=== PATIENT | male | born 1965 | race Two or more races ===

== ENCOUNTER 2023-12-01 11:33 | Emergency (ER) | payer MEDICAID, OTHER ==
[~2023-12-01] VITALS: Ht 165.1 cm; Wt 49.6 kg
[2023-12-01] MEDS: LIDOCAINE 2% JELLY 11ml (GLYDO) UR ONE (12:42)
[2023-12-01 13:42] LABS: Urine Bacteria None Seen /hpf (None Seen)
[2023-12-01 13:49] LABS: Urine Blood 1+ /uL (Negative); Urine Clarity Clear (Clear); Urine Color Light-Yellow (Yellow); Urine Mucus FEW (None Seen); Urine Protein, UAD TRACE (Negative); Urine Specific Gravity 1.015 (1.001-1.035); Urine Urobilinogen Normal (Negative); Urine WBC 1 /hpf (0 - 3)
[2023-12-01 16:23] VITALS: BP 182/104; PULSE 94; RESP 18; O2SAT 98
== END 2023-12-01 16:26 | disposition home or self-care (01) ==
LOC: ER 11:33
DX: R33.9 Retention of urine, unspecified (principal); E78.5 Hyperlipidemia, unspecified; I10 Essential (primary) hypertension; F17.210 Nicotine dependence, cigarettes, uncomplicated; Z86.73 Personal history of transient ischemic attack (TIA), and cerebral infarction without residual deficits
CPT/HCPCS: 51701; 51702; 81001

== ENCOUNTER 2023-12-12 15:53 | Emergency (ER) | payer MEDICAID ==
[~2023-12-12] VITALS: Ht 165.1 cm; Wt 48.5 kg
[2023-12-12 16:23] VITALS: BP 171/97; PULSE 97; RESP 18; TEMP 97.3; O2SAT 98
== END 2023-12-12 16:57 | disposition home or self-care (01) ==
LOC: ER 15:56
DX: Z46.6 Encounter for fitting and adjustment of urinary device (principal); I10 Essential (primary) hypertension; E78.5 Hyperlipidemia, unspecified; F17.210 Nicotine dependence, cigarettes, uncomplicated; Z86.73 Personal history of transient ischemic attack (TIA), and cerebral infarction without residual deficits

== ENCOUNTER 2024-05-04 21:06 | Emergency (ER) | payer MEDICAID ==
[~2024-05-04] VITALS: Ht 157.5 cm; Wt 49.7 kg
--- NOTE | 2024-05-04 21:31 | ED.PDOC ---
General HPI Comments 59-year-old male with PMHx HTN, CVA presents with a chief complaint of urinary retention x onset 1800 today. Patient relays that he is not able to empty his bladder and feels extremely full. Patient mentions that this has happened to him before in the past and was given a Harris catheter and discharged home. Patient reports that he did follow-up with his doctor, whom did not want to remove the Harris catheter or refer him to a urologist. Patient was also hypertensive in triage at 194/128 and then rechecked at 221/117. Patient mentions that he has been complaint with his medication. Chief Complaint: Urinary Time Seen by MD: 21:20 Primary Care Provider: DEANDRE Reviewed notes: Medications, Allergies Allergies: Coded Allergies: NO KNOWN ALLERGIES (Unverified , 12/01/23) Information Source: Patient, Friend Mode of Arrival: Ambulatory Severity: Moderate Inability to void: Complete Timing: Hours Duration: Since onset Has not urinated for: Hours Prehospital treatment: None Onset: Spontaneous Symptoms: Inability to void Location: Suprapubic Penile discharge: None Modifying factors: None associated signs and symptoms: Inability to Void Past Medical History PAST MEDICAL HISTORY: CVA, High Lipids, HTN Past Medical History (Other): prostate enlargement Surgical History: Denies all surgeries Family History Family History: No family hx of Cancer, No family hx of DM, No family hx of Heart jae Social History Smoker: Cigarettes Alcohol: Denies ETOH Use Drugs: Denies Drug Use Lives In: Home Constitutional: denies: chills, diaphoresis, fatigue, fever, malaise, sweats, weakness, others EENTM: denies: blurred vision, double vision, ear bleeding, ear discharge, ear drainage, ear pain, ear ringing, eye pain, eye redness, hearing loss, mouth pain, mouth swelling, nasal discharge, nose bleeding, nose congestion, nose pain, photophobia, tearing, throat pain, throat swelling, voice changes, others Respiratory: denies: cough, hemoptysis, orthopnea, SOB at rest, shortness of breath, SOB with excertion, stridor, wheezing, others Cardiovascular: denies: chest pain, dizzy spells, diaphoresis, Dyspnea on exertion, edema, irregular heart beat, left arm pain, lightheadedness, palpit ations, PND, syncope, others Gastrointestinal: denies: abdomen distended, abdominal pain, blood streaked b owels, constipated, diarrhea, dysphagia, difficulty swallowing, hematemesis, melena, nausea, poor appetite, poor fluid intake, rectal bleeding, rectal pain, vomiting, others Genitourinary: reports: others (Inability to Void); denies: burning, dysuria, flank pain, frequency, hematuria, incontinence, penile discharge, penile sore, pain, testicle pain, testicle swelling, urgency Neurological: denies: dizziness, fainting, headache, left sided numbness, left sided weakness, numbness, paresthesia, pre-existing deficit, right sided numbness, right sided weakness, seizure, speech problems, tingling, tremors, weakness, others Musculoskeletal: denies: back pain, gout, joint pain, joint swelling, muscle pain, muscle stiffness, neck pain, others Integumetry: denies: bruises, change in color, change in hair/nails, dryness, laceration, lesions, lumps, rash, wounds, others Allergic/Immunocompromised: denies: Difficulty Healing, Frequent Infections, Hives, Itching, others Hematologic/Lymphatic: denies: anemia, blood clots, easy bleeding, easy bruising, swollen glands, others Endocrine: denies: excessive hunger, excessive sweating, excessive thirst, excessive urination, flushing, intolerance to cold, intolerance to heat, unexplained weight gain, unexplained weight loss, others Psychiatric: denies: anxiety, bipolar disorder, depression, hopeless, panic disorder, schizophrenia, sleepless, suicidal, others All Other Systems: Reviewed and Negative Physical Exam General Appearance: No Apparent Distress HEENT: Normal ENT Inspection Neck: Full Range of Motion, Normal Inspection Respiratory: Lungs Clear, No Accessory Muscle Use, No Respiratory Distress, Normal Breath Sounds Cardiovascular: No Edema, No JVD, Regular Rate/Rhythm Breast Exam: Deferred Gastrointestinal: Soft, Suprapubic (distention and tenderness), Tenderness Genitalia: Deferred Pelvic: Deferred Rectal: Deferred Extremities: Normal inspection, Normal range of motion, Non-tender, No pedal edema Neurologic: Alert, No Motor Deficits, Normal Affect, Normal Mood, No Sensory Deficits Cerebellar Function: NOT DONE Reflexes: NOT DONE Skin: Dry, Normal Color, Warm Lymphatic: NOT DONE Was a procedure done? Was a procedure done?: No Differential Diagnosis Kidney stone (Female): Renal failure, Urinary obstruction Penile/Scrotal: UTI, Urinary Retention Urinary Problem (Male): Bladder Obstruction X-Ray, Labs, Meds, VS Vital Signs Date Time Temp Pulse Resp B/P (MAP) Pulse Ox O2 Delivery O2 Flow Rate FiO2 05/04/24 21:25 98.2 103 18 202/84 (123) 98 Lab Test 05/04/24 21:25 Range/Units Urine Color Light-yellow Yellow Urine Clarity Clear Clear Urine pH 5.5 5.0-9.0 Urine Specific [place] 1.010 1.001-1.035 Urine Protein Negative Negative Urine Ketones Trace Negative Urine Blood 3+ H Negative /uL Urine Nitrite Negative Negative Urine Bilirubin Negative Negative Urine Urobilinogen Normal Negative mg/dL Urine Leukocyte Esterase Negative Negative /uL Urine RBC 53 0 - 3 /hpf Urine WBC 3 0 - 3 /hpf Urine Squamous Epithelial Cells Few <5 /hpf Urine Bacteria None seen None Seen /hpf Urine Mucus Few None Seen Urine Glucose Normal Normal mg/dL X-Ray, Labs, Meds, VS Comment 59-year-old male with a history of hypertension, dyslipidemia and prostate enl argement presenting with inability to urinate since around 1800 Vitals remarkable for BP 202/84, heart rate 101 Exam remarkable for suprapubic distention and tenderness UA showed blood and RBCs, but was not consistent with infection Harris catheter was inserted with good urine output and relief of abdominal distention and discomfort. On re-evaluation, patient stated he was feeling better, abdominal exam was benign. Hospitalization was considered, however patient had rapid improvement of his symptoms with Harris catheter insertion, and I no longer feel hospitalization is necessary. Patient appears stable for outpatient follow-up with his primary physician for referral to an urologist. Alternatively, he will be referred directly to Dr. Alvarado. Time of 1ST Reevaluation: 21:50 Reevaluation 1ST: Unchanged Patient Education/Counseling: Diagnosis, Treatment, Prognosis Family Education/Counseling: No Family Present Departure 1 Departure Time of Disposition: 23:06 Impression: Primary Impression: Urinary retention Disposition: 01 HOME / SELF CARE / HOMELESS Condition: Stable Referrals: BEN ALVARADO MD Urology Additional Instructions: Follow-up with your primary doctor or an ER in 2 days for catheter removal. If seeing your primary doctor, request referral to an urologist. Alternatively, follow-up directly with Dr. Alvarado. Discharged With: Relative Critical Care Note Critical Care Time?: No Stability Stability form required: No Heart Score Heart Score: Heart Score Response (Comments) Value History N/A 0 EKG N/A 0 Age N/A 0 Risk Factors N/A 0 Troponin N/A 0 Total 0 I personally scribed for SHOLA SOFIA MD ([email or web address]) on 05/04/24 at 21:31. Electronically submitted by Jorge Storm [email or web address]). SHOLA SOFIA MD May 04, 2024 21:31
[2024-05-05 02:00] VITALS: PULSE 89; RESP 18; TEMP 98.2; O2SAT 96
[2024-05-05 02:50] LABS: Urine Bacteria None Seen /hpf (None Seen)
[2024-05-05 03:16] LABS: Urine Blood 3+ /uL (Negative); Urine Clarity Clear (Clear); Urine Color Light-Yellow (Yellow); Urine Mucus FEW (None Seen); Urine Protein, UAD Negative (Negative); Urine Urobilinogen Normal (Negative); Urine WBC 3 /hpf (0 - 3); Urine pH 5.5 (5.0-9.0)
[2024-05-05 03:53] VITALS: BP 135/86; PULSE 96; RESP 16; O2SAT 98
== END 2024-05-05 04:02 | disposition home or self-care (01) ==
LOC: ER 21:06
DX: T83.098A Other mechanical complication of other urinary catheter, initial encounter (principal); E78.5 Hyperlipidemia, unspecified; F17.210 Nicotine dependence, cigarettes, uncomplicated; Z86.73 Personal history of transient ischemic attack (TIA), and cerebral infarction without residual deficits
CPT/HCPCS: 51702; 81001

== ENCOUNTER 2024-05-08 10:29 | Emergency (ER) | payer MEDICAID ==
[~2024-05-08] VITALS: Ht 157.5 cm; Wt 48.8 kg
[2024-05-08 12:04] VITALS: BP 110/90; PULSE 91; RESP 18; TEMP 98; O2SAT 98
--- NOTE | 2024-05-08 12:08 | ED.PDOC ---
History of Present Illness HPI Comments A 59 YEAR OLD MALE PRESENTS TO THE ED WITH COMPLAINT OF REQUEST FOR YAP CATHETER REMOVAL. PATIENT STATES HE HAD A YAP CATHETER PLACED 4 DAYS AGO HERE IN THIS ED AND WOULD NOW LIKE IT TO BE REMOVED HE STATES HE FEELS LIKE HE CAN URINATE BY HIMSELF. PATIENT DENIES FEVER, CHILLS, SHORTNESS OF BREATH, CHEST PAIN, ABDOMINAL PAIN, NAUSEA, VOMITING, HEADACHE, OR OTHER COMPLAINTS. NO OTHER SYMPTOMS OR MODIFYING FACTORS AT THIS TIME. PATIENT IS ALERT, ORIENTED X 4, AND HAS STEADY GAIT. Chief Complaint: Tube Replacement Time Seen by MD: 10:42 Primary Care Provider: DEANDRE Reviewed Notes: Nurses Notes, Medications, Allergies Allergies: Coded Allergies: NO KNOWN ALLERGIES (Unverified , 12/01/23) Home Meds Active Scripts Tamsulosin Hcl (Flomax) 0.4 Mg Cap, 1 CAP PO DAILY, #30 CAP Prov:HAMZAH GOODWIN 05/08/24 Ciprofloxacin Hcl (Cipro) 500 Mg Tab, 1 TAB PO BID, #14 TAB Prov:HAMZAH GOODWIN 05/08/24 Information Source: Patient Mode of Arrival: Ambulatory Severity: None Timing: Days Duration: Since onset, Days Prehospital treatment: None Medication Refill: For: Other (YAP CATHETER REMOVAL) Past Medical History PAST MEDICAL HISTORY: CVA, High Lipids, HTN, UTI'S Past Medical History (Other): BPH Surgical History: Denies all surgeries Family History Family History: No family hx of Cancer, No family hx of DM, No family hx of Heart jae Social History Smoker: Cigarettes Alcohol: Denies ETOH Use Drugs: Denies Drug Use Lives In: Home Constitutional: denies: chills, diaphoresis, fatigue, fever, malaise, sweats, weakness, others EENTM: denies: blurred vision, double vision, ear bleeding, ear discharge, ear drainage, ear pain, ear ringing, eye pain, eye redness, hearing loss, mouth pain, mouth swelling, nasal discharge, nose bleeding, nose congestion, nose pain, photophobia, tearing, throat pain, throat swelling, voice changes, others Respiratory: denies: cough, hemoptysis, orthopnea, SOB at rest, shortness of breath, SOB with excertion, stridor, wheezing, others Cardiovascular: denies: chest pain, dizzy spells, diaphoresis, Dyspnea on exertion, edema, irregular heart beat, left arm pain, lightheadedness, palpitations, PND, syncope, others Gastrointestinal: denies: abdomen distended, abdominal pain, blood streaked bowels, constipated, diarrhea, dysphagia, difficulty swallowing, hematemesis, melena, nausea, poor appetite, poor fluid intake, rectal bleeding, rectal pain, vomiting, others Genitourinary: denies: burning, dysuria, flank pain, frequency, hematuria, incontinence, penile discharge, penile sore, pain, testicle pain, testicle swelling, urgency, others Neurological: denies: dizziness, fainting, headache, left sided numbness, left sided weakness, numbness, paresthesia, pre-existing deficit, right sided numbness, right sided weakness, seizure, speech problems, tingling, tremors, weakness, others Musculoskeletal: denies: back pain, gout, joint pain, joint swelling, muscle pain, muscle stiffness, neck pain, others Integumetry: denies: bruises, change in color, change in hair/nails, dryness, laceration, lesions, lumps, rash, wounds, others Allergic/Immunocompromised: denies: Difficulty Healing, Frequent Infections, Hives, Itching, others Hematologic/Lymphatic: denies: anemia, blood clots, easy bleeding, easy bruising, swollen glands, others Endocrine: denies: excessive hunger, excessive sweating, excessive thirst, excessive urination, flushing, intolerance to cold, intolerance to heat, unexplained weight gain, unexplained weight loss, others Psychiatric: denies: anxiety, bipolar disorder, depression, hopeless, panic disorder, schizophrenia, sleepless, suicidal, others All Other Systems: Reviewed and Negative Physical Exam General Appearance: No Apparent Distress, Normal HEENT: Normal ENT Inspection, PERRL/EOMI, Pharynx Normal, TMs Normal Neck: Full Range of Motion, Non-Tender, Normal, Normal Inspection Respiratory: Chest Non-Tender, Lungs Clear, No Accessory Muscle Use, No Respiratory Distress, Normal Breath Sounds Cardiovascular: No Edema, No JVD, No Murmur, No Gallop, Normal Peripheral Pulses, Regular Rate/Rhythm Breast Exam: Deferred Gastrointestinal: No Organomegaly, Non Tender, No Pulsatile Mass, Normal Bowel Sounds, Soft Genitalia: Deferred Pelvic: Deferred Rectal: Deferred Extremities: No calf tenderness, Normal capillary refill, Normal inspection, Normal range of motion, Non-tender, No pedal edema Musculoskeletal : Apperance: Normal Neurologic: Alert, neuropathologist II-XII nml as Tested, No Motor Deficits, Normal Affect, Normal Mood, No Sensory Deficits Cerebellar Function: Normal Reflexes: Normal Skin: Dry, Normal Color, Warm Peripheral Pulses: 2+ carotid (R), 2+ carotid (L) Lymphatic: No Adenopathy Was a procedure done? Was a procedure done?: No Differential Dx Considerations may include: REQUEST FOR AYP CATHETER REMOVAL, HISTORY UTI X-Ray, Labs, Meds, VS Vital Signs Date Time Temp Pulse Resp B/P (MAP) Pulse Ox O2 Delivery O2 Flow Rate FiO2 05/08/24 12:04 91 18 98 Room Air 05/08/24 12:04 98.0 91 18 110/90 (97) 98 98.0 05/08/24 10:41 98.0 91 18 170/90 (116) 98 X-Ray, Labs, Meds, VS Comment TREATMENT: YAP CATHETER WAS REMOVED. Time of 1ST Reevaluation: 13:00 Reevaluation 1ST: Improved Patient Education/Counseling: Diagnosis, Treatment, Need For Follow Up Family Education/Counseling: Diagnosis, Treatment, Need For Follow Up Medical Screening: No EMC Exist At This Time Departure 1 Departure Time of Disposition: 13:00 Impression: Primary Impression: Encounter for Yap catheter removal Disposition: 01 HOME / SELF CARE / HOMELESS Condition: Stable Additional Instructions: FOLLOW-UP WITH PCP IN 1 TO 2 DAYS. TAKE MEDICATIONS PRESCRIBED. RETURN TO ED FOR ANY NEW OR WORSENING SYMPTOMS. e-Prescriptions Tamsulosin Hcl (Flomax) 0.4 Mg Cap 1 CAP PO DAILY, #20 CAP Prov: HAMZAH GOODWIN 05/08/24 Ciprofloxacin Hcl (Cipro) 500 Mg Tab 1 TAB PO BID, #14 TAB Prov: HAMZAH GOODWIN 05/08/24 Discharged With: Self, Relative Critical Care Note Critical Care Time?: No Stability Stability form required: No I personally scribed for HAMZAH GOODWIN ([email or web address]) on 05/08/24 at 12:08. Electronically submitted by Jared Champagne ([email or web address]). HAMZAH GOODWIN May 08, 2024 12:08
[2024-05-08] MEDS ORDERED: CIPR-173 PO (12:39)
[2024-05-08] MEDS ORDERED: TAMS-35 PO (12:39)
== END 2024-05-08 13:11 | disposition home or self-care (01) ==
LOC: ER 10:29
DX: N40.0 Benign prostatic hyperplasia without lower urinary tract symptoms (principal); F17.210 Nicotine dependence, cigarettes, uncomplicated; I10 Essential (primary) hypertension; Z46.6 Encounter for fitting and adjustment of urinary device; Z86.73 Personal history of transient ischemic attack (TIA), and cerebral infarction without residual deficits; Z87.440 Personal history of urinary (tract) infections

== ENCOUNTER 2024-06-02 15:08 | Inpatient (IN) | payer MEDICAID ==
[~2024-06-02] VITALS: Ht 157.5 cm; Wt 49.1 kg
[~2024-06-02 15:08] MED LIST: CIPR-173 PO; TAMS-35 PO
--- NOTE | 2024-06-02 15:25 | ED.PDOC ---
General HPI Comments HPI: Poor Historian. 59 y/o M presents with bother for c/o urinary retention since 0700 am today. This is the 3rd time this problem happens. He has been here before happened with catheter inserted and later removed. Patient is not follow up with the Urology yet. Patient appears very uncomfortable. Denies any other acute symptoms. Harris catheter was placed in triage and a minimum of 400 cc came out Initial Vital Signs: Temp: 97.7F HR: 115 RR: 20 BP: 164/115 SpO2: 97% PMHx: CVA w/left-sided deficits, HTN, HLD PSHx: denies REVIEW OF SYSTEMS: CONSTITUTIONAL: Denies acute: fever, diaphoresis, chills, generalized weakness. HEAD: Denies acute: headache, photophobia Eyes: Denies acute: Double vision, vision loss, eye pain, eye discharge. EARS: Denies acute: tinnitus, hearing loss, ear discharge, ear pain, THROAT: Denies acute: sore throat, swelling, difficulty swallowing , pain with swallowing, change in voice. NECK: Denies acute: neck pain, neck swelling, stiff neck. HEART: Denies acute : chest pain, palpitations, LUNGS: Denies acute: SOB, wheezing, cough, hemoptysis ABDOMEN: Denies acute: Nausea, Vomiting, diarrhea, melena , hematemesis, hematochezia SKIN: Denies acute: rash, redness, lesions, itchiness. EXTREMITIES: Denies acute: calf pain, numbness, tingling, weakness, denies pain in extremity. Denies acute: Low back pain. Neuro: Denies acute: focal neurological deficit, motor or sensory focal neurological deficit, tremors, seizure like activity, confusion, dizziness, change in mental status, loss of bowel or bladder function, cauda equina like symptoms. : Denies acute: dysuria, hematuria, flank pain, increase in urinary frequency. PSYCH: Denies acute: hallucination, suicidal ideation, homicidal ideation. PHYSICAL EXAM: General: Moderate acute distress, awake and alert. Head: normocephalic, atraumatic. Neck: supple, trachea is midline, no swelling. Throat: Normal phonation. Eyes:, no erythema, no purulent discharge, no proptosis, no icterus. Heart: regular tachycardic, no significant murmur appreciated. Lungs: no apparent respiratory distress, Able to speak in full sentences. No wheezing, no rhonchi, no crackles. No stridors Clear to auscultation bilaterally. Abdomen: Generalized lower abdomen tender to palpation, non distended, soft, no guarding, no rebound, + bowel sounds. Neuro: Awake, Alert, oriented to name, self, situation, follows commands GCS=15. Speech is normal. Skin: no petechia, no purpura, no cyanosis, non-pale, not jaundice. Lower extremities: --no - Pitting edema no deformity, no focal swelling, no calf TTP. Makes eye contact. moves all four extremities. Face: no apparent facial droop. Chief Complaint: Urinary Time Seen by MD: 15:15 Primary Care Provider: DEANDRE Reviewed notes: Nurses Notes, Medications, Allergies Allergies: Coded Allergies: NO KNOWN ALLERGIES (Unverified , 12/01/23) Home Meds Active Scripts Tamsulosin Hcl (Flomax) 0.4 Mg Cap, 1 CAP PO DAILY, #20 CAP Prov:HAMZAH GOODWIN 05/08/24 Ciprofloxacin Hcl (Cipro) 500 Mg Tab, 1 TAB PO BID, #14 TAB Prov:HAMZAH GOODWIN 05/08/24 Information Source: Patient, Relative (Sibling) Was a procedure done? Was a procedure done?: No X-Ray, Labs, Meds, VS Vital Signs Date Time Temp Pulse Resp B/P (MAP) Pulse Ox O2 Delivery O2 Flow Rate FiO2 06/02/24 15:20 97.7 115 20 164/115 (131) 97 06/02/24 15:20 124 Lab Test 06/02/24 18:06 06/02/24 16:58 06/02/24 15:35 06/02/24 15:00 Range/Units Lactic Acid Level 2.7 *H 4.2 *H 0.4-2.0 mmol/L Troponin I High Sensitivity 654 *H 578 *H 374 *H </=54 ng/L White Blood Count 9.7 4.4-10.8 10^3/uL Red Blood Count 5.68 4.5-5.90 10^6/uL Hemoglobin 17.6 H 13.5-17.5 g/dL Hematocrit 51.8 41.0-53.0 % Mean Corpuscular Volume 91.1 80.0-100.0 fL Mean Corpuscular Hemoglobin 31.0 28.0-32.0 pg Mean Corpuscular Hemoglobin Concent 34.0 32.0-36.0 g/dL Red Cell Distribution Width 13.7 11.8-14.3 % Platelet Count 247 140-450 10^3/uL Mean Platelet Volume 8.1 6.9-10.8 fL Neutrophils (%) (Auto) 87.2 H 37.0-80.0 % Lymphocytes (%) (Auto) 8.2 L 10.0-50.0 % Monocytes (%) (Auto) 3.9 0.0-12.0 % Eosinophils (%) (Auto) 0.4 0.0-7.0 % Basophils (%) (Auto) 0.3 0.0-2.0 % Neutrophils # (Auto) 8.4 1.6-8.6 10 ^3/uL Lymphocytes # (Auto) 0.8 0.4-5.4 10 ^3/uL Monocytes # (Auto) 0.4 0-1.3 10 ^3/uL Eosinophils # (Auto) 0 0-0.8 10 ^3/uL Basophils # (Auto) 0 0-0.2 10 ^3/uL Nucleated Red Blood Cells 0.1 % Sodium Level 141 136-145 mmol/L Potassium Level 3.7 3.5-5.1 mmol/L Chloride Level 106 98-107 mmol/L Carbon Dioxide Level 27 20-31 mmol/L Anion Gap 8 5-15 Blood Urea Nitrogen 10 9-23 mg/dL Creatinine 1.18 0.700-1.30 mg/dL Glomerular Filtration Rate Calc 72 >90 mL/min BUN/Creatinine Ratio 8.5 L 10.0-20.0 Serum Glucose 184 H 74-106 mg/dL Calcium Level 10.1 8.7-10.4 mg/dL Total Bilirubin 0.5 0.2-1.0 mg/dL Aspartate Amino Transferase (AST) 22 13-40 U/L Alanine Aminotransferase (ALT) 21 7-40 U/L Alkaline Phosphatase 130 H 46-116 U/L Total Protein 7.4 5.7-8.2 g/dL Albumin 4.6 3.2-4.8 g/dL Urine Color Light-yellow Yellow Urine Clarity Clear Clear Urine pH 6.5 5.0-9.0 Urine Specific [place] 1.010 1.001-1.035 Urine Protein Negative Negative Urine Ketones Negative Negative Urine Blood Negative Negative /uL Urine Nitrite Negative Negative Urine Bilirubin Negative Negative Urine Urobilinogen Normal Negative mg/dL Urine Leukocyte Esterase Negative Negative /uL Urine RBC 3 0 - 3 /hpf Urine WBC 1 0 - 3 /hpf Urine Squamous Epithelial Cells None seen <5 /hpf Urine Bacteria None seen None Seen /hpf Urine Glucose 1+ H Normal mg/dL Time of 1ST Reevaluation: 15:15 Reevaluation 1ST: Unchanged Patient Education/Counseling: Diagnosis, Treatment Family Education/Counseling: No Family Present Departure 1 Departure Time of Disposition: 15:32 Impression: Primary Impression: Acute urinary retention Additional Impressions: Elevated troponin Elevated lactic acid level Disposition: ADMITTED INPATIENT [facility]mit to: [facility] Condition: Guarded Discharged With: Self, Relative (Sibling) Critical Care Note Critical Care Time?: No I personally scribed for PETE FLANNERY DO ([email or web address]) on 06/02/24 at 15:25. Electronically submitted by Darien Pagan [email or web address]). I personally scribed for PETE FLANNERY DO ([email or web address]) on 06/02/24 at 15:43. Electronically submitted by Darien Pagan ([email or web address]). I personally scribed for PETE FLANNERY DO ([email or web address]) on 06/02/24 at 19:55. Electronically submitted by Jorge Storm [email or web address]). PETE FLANNERY DO Jun 02, 2024 15:25
[2024-06-02 15:56] LABS: Basophils # (auto) 0 10 ^3/uL (0-0.2); Basophils % (auto) 0.3 % (0.0-2.0); Eosinophils # (auto) 0 10 ^3/uL (0-0.8); Eosinophils % (auto) 0.4 % (0.0-7.0); Hematocrit 51.8 % (41.0-53.0); Hemoglobin 17.6 g/dL (13.5-17.5); Lymphocytes # (auto) 0.8 10 ^3/uL (0.4-5.4); Lymphocytes % (auto) 8.2 % (10.0-50.0); Mean Corpuscular Volume 91.1 fL (80.0-100.0); Monocytes # (auto) 0.4 10 ^3/uL (0-1.3); Monocytes % (auto) 3.9 % (0.0-12.0); Neutrophils # (auto) 8.4 10 ^3/uL (1.6-8.6); Neutrophils % (auto) 87.2 % (37.0-80.0); Nucleated Red Blood Cells % 0.1 %; Platelet Count (auto) 247 10^3/uL (140-450); Red Blood Cells 5.68 10^6/uL (4.5-5.90); Red Cell Distribution Width 13.7 % (11.8-14.3); White Blood Cell 9.7 10^3/uL (4.4-10.8)
[2024-06-02 16:00] LABS: Urine Bacteria None Seen /hpf (None Seen)
[2024-06-02 16:11] LABS: Alanine Aminotransferase 21 U/L (7-40); Albumin 4.6 g/dL (3.2-4.8); Anion Gap 8 (5-15); Aspartate Aminotransferase 22 U/L (13-40); BUN/Creatinine Ratio 8.5 (10.0-20.0); Bilirubin, Total 0.5 mg/dL (0.2-1.0); Blood Urea Nitrogen 10 mg/dL (9-23); Calcium 10.1 mg/dL (8.7-10.4); Carbon Dioxide 27 mmol/L (20-31); Chloride 106 mmol/L (98-107); Potassium 3.7 mmol/L (3.5-5.1); Sodium 141 mmol/L (136-145); Total Protein 7.4 g/dL (5.7-8.2)
[2024-06-02 16:15] LABS: Alkaline Phosphatase 130 U/L (46-116); Glucose 184 mg/dL (74-106)
[2024-06-02 16:19] LABS: Lactic Acid w/Reflex 4.2 mmol/L (0.4-2.0)
[2024-06-02 16:25] LABS: Urine Blood Negative /uL (Negative); Urine Clarity Clear (Clear); Urine Color Light-Yellow (Yellow); Urine Protein, UAD Negative (Negative); Urine Urobilinogen Normal (Negative); Urine WBC 1 /hpf (0 - 3); Urine pH 6.5 (5.0-9.0)
[2024-06-02] MEDS ORDERED: NITROGLYCERIN 0.4 MG SL TAB SL PRN (19:00)
[2024-06-02] MEDS ORDERED: ONDANSETRON HCL 4 MG/2 ML VIAL IV PRN (19:00)
[2024-06-02] MEDS ORDERED: MORPHINE SULFATE INJ 2 MG/ml SYRG IV PRN (19:00)
--- NOTE | 2024-06-02 19:39 | DVH ---
CHEST RADIOGRAPH Indication: tachy Technique: Single frontal view of the chest was obtained Comparison: None FINDINGS: Lines and Tubes: None Lungs: No focal consolidation. Pleura: No effusion. No pneumothorax. Cardiomediastinal contours: Unremarkable Bones: No acute osseous abnormality. IMPRESSION: 1. No radiographic evidence of acute cardiopulmonary disease. HS:Y
[2024-06-02] MEDS: ASPirin 325 MG TAB PO ONE (21:41)
[2024-06-02] MEDS: SODIUM CHLORIDE 0.9% 1,000 ML IV ONE (21:41)
[2024-06-02] MEDS: ATORVASTATIN 20 MG TAB PO SCH (21:41)
[2024-06-02 22:00] VITALS: PULSE 68; RESP 16; O2SAT 96
[2024-06-03] VITALS (10 sets, daily range): BP systolic 142–179; BP diastolic 73–107; PULSE 60–77; RESP 16–19; TEMP 97.6–98.3; O2SAT 97–99
[2024-06-03] MEDS: TEMAZEPAM 15 MG CAP PO PRN (01:26)
--- NOTE | 2024-06-03 04:01 | DVHHP2 ---
History of Present Illness Reason for Visit: Urinary retention History of Present Illness 59-year-old male presents for evaluation of urinary retention. Patient presents with a one day history of urinary retention. He states having a similar episode twice in the past. Patient denies nausea or vomiting. Denies fever or chills. No dysuria. Initial troponin levels were noted to be elevated as well. He denies chest pain or shortness for breath. Past Medical History Dyslipidemia, hypertension and CVA Past Surgical History Denies Family History Noncontributory Smoke: No ALCOHOL: none Drugs: None Lives: with Family Review of Systems Review of Systems Review of systems are currently negative otherwise addressed in HPI. Allergies: Coded Allergies: NO KNOWN ALLERGIES (Unverified , 12/01/23) Medications Current Medications Medications Dose Ordered Sig/Harman Route Start Time Stop Time Status Last Admin Dose Admin Temazepam 15 mg QHSP PRN PO 06/02/24 19:00 06/03/24 01:26 15 MG Ondansetron HCl 4 mg Q4HP PRN IV 06/02/24 19:00 Acetaminophen 650 mg Q6HP PRN PO 06/02/24 19:00 Nitroglycerin 0.4 mg Q5MINP PRN SL 06/02/24 19:00 Morphine Sulfate 2 mg Q30M PRN IV 06/02/24 19:00 Atorvastatin Calcium 10 mg HS PO 06/02/24 22:00 06/02/24 21:41 10 MG Aspirin 162 mg DAILY PO 06/03/24 10:00 Tamsulosin HCl 0.4 mg QPM PO 06/03/24 18:00 Exam Vital Signs Vital Signs Date Time Temp Pulse Resp B/P (MAP) Pulse Ox O2 Delivery O2 Flow Rate FiO2 06/03/24 00:42 Room Air* 0 21 06/02/24 22:00 68 16 96 06/02/24 21:45 98.1 155/92 (113) 98.1 Exam Gen: 59-year-old male in no apparent distress. Skin: Warm, dry, normal color and texture, no rash. HEENT: Normocephalic atraumatic, mucous membranes moist and pink. Neck: Cervical and supraclavicular nodes normal without enlargement, trachea is midline, thyroid gland is normal without masses. Pulmonary: Clear to auscultation and percussion bilaterally. Cardiac: Regular rate and rhythm. No murmur Abdomen: Soft, nontender, nondistended, bowel sounds present all 4 quadrants, no guarding, no rigidity, no organomegaly. Extremities: No cyanosis, clubbing, no edema Neuro: Cranial nerves II through XII grossly intact, normal affect and speech, Labs/Xrays ORDERING PHYSICIAN: PETE FLANNERY DO PROCEDURE(s): CXRP - CHEST PORTABLE REASON: tachy ORDER NUMBER(s): [id number], ACCESSION NUMBER(s): [id number] CHEST RADIOGRAPH Indication: tachy Technique: Single frontal view of the chest was obtained Comparison: None FINDINGS: Lines and Tubes: None Lungs: No focal consolidation. Pleura: No effusion. No pneumothorax. Cardiomediastinal contours: Unremarkable Bones: No acute osseous abnormality. IMPRESSION: 1. No radiographic evidence of acute cardiopulmonary disease. HS:Y Labs Test 06/02/24 23:14 06/02/24 18:06 06/02/24 15:35 06/02/24 15:00 Range/Units Troponin I High Sensitivity 640 *H </=54 ng/L Lactic Acid Level 2.7 *H 0.4-2.0 mmol/L White Blood Count 9.7 4.4-10.8 10^3/uL Red Blood Count 5.68 4.5-5.90 10^6/uL Hemoglobin 17.6 H 13.5-17.5 g/dL Hematocrit 51.8 41.0-53.0 % Mean Corpuscular Volume 91.1 80.0-100.0 fL Mean Corpuscular Hemoglobin 31.0 28.0-32.0 pg Mean Corpuscular Hemoglobin Concent 34.0 32.0-36.0 g/dL Red Cell Distribution Width 13.7 11.8-14.3 % Platelet Count 247 140-450 10^3/uL Mean Platelet Volume 8.1 6.9-10.8 fL Neutrophils (%) (Auto) 87.2 H 37.0-80.0 % Lymphocytes (%) (Auto) 8.2 L 10.0-50.0 % Monocytes (%) (Auto) 3.9 0.0-12.0 % Eosinophils (%) (Auto) 0.4 0.0-7.0 % Basophils (%) (Auto) 0.3 0.0-2.0 % Neutrophils # (Auto) 8.4 1.6-8.6 10 ^3/uL Lymphocytes # (Auto) 0.8 0.4-5.4 10 ^3/uL Monocytes # (Auto) 0.4 0-1.3 10 ^3/uL Eosinophils # (Auto) 0 0-0.8 10 ^3/uL Basophils # (Auto) 0 0-0.2 10 ^3/uL Nucleated Red Blood Cells 0.1 % Sodium Level 141 136-145 mmol/L Potassium Level 3.7 3.5-5.1 mmol/L Chloride Level 106 98-107 mmol/L Carbon Dioxide Level 27 20-31 mmol/L Anion Gap 8 5-15 Blood Urea Nitrogen 10 9-23 mg/dL Creatinine 1.18 0.700-1.30 mg/dL Glomerular Filtration Rate Calc 72 >90 mL/min BUN/Creatinine Ratio 8.5 L 10.0-20.0 Serum Glucose 184 H 74-106 mg/dL Calcium Level 10.1 8.7-10.4 mg/dL Total Bilirubin 0.5 0.2-1.0 mg/dL Aspartate Amino Transferase (AST) 22 13-40 U/L Alanine Aminotransferase (ALT) 21 7-40 U/L Alkaline Phosphatase 130 H 46-116 U/L Total Protein 7.4 5.7-8.2 g/dL Albumin 4.6 3.2-4.8 g/dL Urine Color Light-yellow Yellow Urine Clarity Clear Clear Urine pH 6.5 5.0-9.0 Urine Specific [place] 1.010 1.001-1.035 Urine Protein Negative Negative Urine Ketones Negative Negative Urine Blood Negative Negative /uL Urine Nitrite Negative Negative Urine Bilirubin Negative Negative Urine Urobilinogen Normal Negative mg/dL Urine Leukocyte Esterase Negative Negative /uL Urine RBC 3 0 - 3 /hpf Urine WBC 1 0 - 3 /hpf Urine Squamous Epithelial Cells None seen <5 /hpf Urine Bacteria None seen None Seen /hpf Urine Glucose 1+ H Normal mg/dL Assessment/Plan Assessment/Plan Assessment Elevated troponin rule out NSTEMI Acute urinary retention Hypertension Plan Admit the patient to telemetry to the hospitalist Cardiology consultation urology consultation Resume home medications Continue treatment per orders. Plan discussed with: Patient My Orders Orders - STEVEN STEIN Procedure Category Date Status Time * Cardiology Consult CONS 06/02/24 Transmitted 18:53 * Urology Consult CONS 06/02/24 Transmitted 18:53 Basic Metabolic Panel LAB 06/03/24 Logged 04:00 Admit ADMIT 06/02/24 Transmitted 18:53 Temazepam (Restoril) PHA 06/02/24 In Process 19:00 Ondansetron Hcl PHA 06/02/24 In Process (Zofran) 19:00 Complete Blood Count LAB 06/03/24 Logged 04:00 Cardiac DIET 06/03/24 Transmitted Diet-2gna,Lofat,Lochol Breakfast Condition: Fair EVA 06/02/24 In Process 18:53 Acetaminophen Tablet PHA 06/02/24 In Process (Tylenol Tablet) 19:00 Bedrest With Bathroom EVA 06/02/24 In Process Privileg 18:53 Nitroglycerin PHA 06/02/24 In Process Sublingual (Ntrostat 19:00 Morphine Sulfate PHA 06/02/24 In Process Injection 19:00 Stat Ekg For Chest EVA 06/02/24 In Process Pain 18:53 Notify Md Of Changes EVA 06/02/24 In Process From Base 18:53 Oil Speculator For EVA 06/02/24 In Process 24 Hours 18:53 Emergency Dysrhythmia EVA 06/02/24 In Process Protocol 18:53 Rhythm Strips Once EVA 06/02/24 In Process Every Shift 18:53 Oxygen By Nasal RT 06/02/24 Transmitted Cannula 18:53 Atorvastatin (Lipitor) PHA 06/02/24 In Process 22:00 Aspirin Tablet PHA 06/03/24 In Process 10:00 Tamsulosin PHA 06/03/24 In Process Hydrochloride (Flomax) 18:00 Date of Service: Jun 02, 2024 Billing Provider: STEVEN STEIN Common Visit Codes: [id number] INP/OBS CARE (HIGH) STEVEN STEIN Jun 03, 2024 04:01
[2024-06-03 06:50] LABS: Basophils # (auto) 0.1 10 ^3/uL (0-0.2); Basophils % (auto) 0.7 % (0.0-2.0); Eosinophils # (auto) 0.4 10 ^3/uL (0-0.8); Eosinophils % (auto) 5.8 % (0.0-7.0); Hematocrit 44.5 % (41.0-53.0); Hemoglobin 15.3 g/dL (13.5-17.5); Lymphocytes # (auto) 2.4 10 ^3/uL (0.4-5.4); Lymphocytes % (auto) 31.5 % (10.0-50.0); Mean Corpuscular Hgb Conc. 34.3 g/dL (32.0-36.0); Mean Corpuscular Volume 90.5 fL (80.0-100.0); Monocytes # (auto) 0.6 10 ^3/uL (0-1.3); Monocytes % (auto) 7.7 % (0.0-12.0); Neutrophils # (auto) 4.1 10 ^3/uL (1.6-8.6); Neutrophils % (auto) 54.3 % (37.0-80.0); Nucleated Red Blood Cells % 0.1 %; Platelet Count (auto) 217 10^3/uL (140-450); Red Blood Cells 4.91 10^6/uL (4.5-5.90); Red Cell Distribution Width 13.8 % (11.8-14.3); White Blood Cell 7.5 10^3/uL (4.4-10.8)
[2024-06-03 06:57] LABS: Anion Gap 8 (5-15); Carbon Dioxide 29 mmol/L (20-31); Chloride 107 mmol/L (98-107); Potassium 3.5 mmol/L (3.5-5.1); Sodium 144 mmol/L (136-145)
[2024-06-03 06:58] LABS: Calcium 9.4 mg/dL (8.7-10.4)
[2024-06-03 07:03] LABS: BUN/Creatinine Ratio 7.5 (10.0-20.0); Glucose 86 mg/dL (74-106)
[2024-06-03 07:04] LABS: Blood Urea Nitrogen 7 mg/dL (9-23)
--- NOTE | 2024-06-03 07:31 | ECG ---
[facility] Test Date: 2024-06-02 Test Time: 15:20:36 Pat Name: JAC GROSS Department: ER Room: [facility] Gender: M Cyber Incident Handler: OUMAR : 1965 Requested By: PETE FLANNERY Order Number: [id number] Reading MD: Brice Field Measurements Intervals [place] Rate: 124 P: 84 IN: 153 QRS: 66 QRSD: 86 T: -57 QT: 311 QTc: 447 Interpretive Statements Sinus tachycardia LAE, consider biatrial enlargement LVH with secondary repolarization abnormality Probable inferior infarct, old Electronically Signed On 06-05-2024 12:39:32 PST by Brice Field Please click the below link to view image of tracing.
[2024-06-03 08:33] LABS: Magnesium 2.2 mg/dL (1.6-2.6)
[2024-06-03] MEDS: ASPirin 81 mg TAB PO SCH (10:15)
--- NOTE | 2024-06-03 10:29 | DVHINCON2 ---
Date Seen: Jun 03, 2024 Referring Physician ELISEO Neville Reason for Consultation Elevated troponin History of Present Illness This is a 59-year-old Turkmen speaking male who presents to the emergency room with chief complaint of urinary retention. At the time of assessment, a Turkmen radio operator ground (ID #[id number]) was used for interpretation. The patient reports that this is the 3rd time that he has experienced urinary retention. He comes to the emergency room for further evaluation. Cardiology has now been consulted for elevated troponin level. Initial twelve lead electrocardiogram reveals normal sinus rhythm with ST depression to inferior leads. The patient denies any chest pain or cardiac symptoms. Initial troponin level of 374ng/L with up trend and peak level of 654ng/L. Significant past medical history includes hypertension, dyslipidemia, CVA with left-sided deficit in 2020, and tobacco use. Past Medical History Past medical history reviewed. No other significant than mentioned above. Past Surgical History Denies all previous surgeries Family History: Patient reports no known family medical history. Family History Family history reviewed. Social History Patient has a five pack-year history, reports he quit smoking a few months ago Patient denies any illicit drug use Patient denies any alcohol use Allergies: Coded Allergies: NO KNOWN ALLERGIES (Unverified , 12/01/23) Home Meds Active Scripts Tamsulosin Hcl (Flomax) 0.4 Mg Cap, 1 CAP PO DAILY, #20 CAP Prov:HAMZAH GOODWIN 05/08/24 Ciprofloxacin Hcl (Cipro) 500 Mg Tab, 1 TAB PO BID, #14 TAB Prov:HAMZAH GOODWIN 05/08/24 Home Meds Home medications reviewed. Current Medications Current Medications Medications (Trade) Dose Ordered Sig/Harman Route PRN Reason Start Time Stop Time Status Last Admin Temazepam (Restoril) 15 mg QHSP PRN PO FOR INSOMNIA 06/02/24 19:00 06/03/24 01:26 Ondansetron HCl (Zofran) 4 mg Q4HP PRN IV NAUSEA / VOMITING 06/02/24 19:00 Acetaminophen (Tylenol Tablet) 650 mg Q6HP PRN PO PAIN SCALE 1-3 OR TEMP>100.4 06/02/24 19:00 Nitroglycerin (Ntrostat Sublingual) 0.4 mg Q5MINP PRN SL FOR CHEST PAIN 06/02/24 19:00 Morphine Sulfate 2 mg Q30M PRN IV FOR CHEST PAIN 06/02/24 19:00 Atorvastatin Calcium (Lipitor) 10 mg HS PO 06/02/24 22:00 06/02/24 21:41 Aspirin 162 mg DAILY PO 06/03/24 10:00 06/03/24 10:15 Tamsulosin HCl (Flomax) 0.4 mg QPM PO 06/03/24 18:00 Review of Systems Constitutional: No symptom reported Ears, Nose, & Throat: No symptom reported Eyes: No symptom reported Neurological: No symptoms reported Pulmonary/Respiratory: No symptoms reported Cardiovascular: No symptom reported Gastrointestinal: No symptom reported Genitourinary: Urinary retention Musculoskeletal: No symptom reported Skin: No symptom reported Psychiatric: No symptom reported Endocrine: No symptom reported Hematologic/Lymphatic: No symptom reported Vital Signs Vital Signs Date Time Temp Pulse Resp B/P (MAP) Pulse Ox O2 Delivery O2 Flow Rate FiO2 06/03/24 08:35 98.3 63 16 142/107 (119) 99 98.3 06/03/24 08:30 Room Air* 0 21 Physical Exam General Appearance: Cooperative. Well-developed. Well-nourished. No acute distress. Pulmonary/Respiratory: Clear, bilateral breaths sounds. Cardiovascular/Chest: Regular rate and rhythm. Peripheral Pulses: 2+ Radial (R). 2+ Radial (L). 2+ Pedal (R). 2+ Pedal (L) Abdominal Exam: Normal bowel sounds. Ankle Exam: Negative ankle edema Lower extremities: Negative lower extremity edema Neuro/Mental Status: A/OX4, coherent. Thoughts/Psych: Normal thought pattern. Appropriate mood and affect. Good judgment and insight. Appearance: No acute distress. Skin Exam: Normal inspection. Normal color. Warm and dry. Labs/Diagnostic Data Labs Test 06/03/24 05:45 06/02/24 23:14 06/02/24 18:06 06/02/24 15:35 Range/Units White Blood Count 7.5 4.4-10.8 10^3/uL Red Blood Count 4.91 4.5-5.90 10^6/uL Hemoglobin 15.3 13.5-17.5 g/dL Hematocrit 44.5 # 41.0-53.0 % Mean Corpuscular Volume 90.5 80.0-100.0 fL Mean Corpuscular Hemoglobin 31.0 28.0-32.0 pg Mean Corpuscular Hemoglobin Concent 34.3 32.0-36.0 g/dL Red Cell Distribution Width 13.8 11.8-14.3 % Platelet Count 217 140-450 10^3/uL Mean Platelet Volume 8.3 6.9-10.8 fL Neutrophils (%) (Auto) 54.3 37.0-80.0 % Lymphocytes (%) (Auto) 31.5 10.0-50.0 % Monocytes (%) (Auto) 7.7 0.0-12.0 % Eosinophils (%) (Auto) 5.8 0.0-7.0 % Basophils (%) (Auto) 0.7 0.0-2.0 % Neutrophils # (Auto) 4.1 1.6-8.6 10 ^3/uL Lymphocytes # (Auto) 2.4 0.4-5.4 10 ^3/uL Monocytes # (Auto) 0.6 0-1.3 10 ^3/uL Eosinophils # (Auto) 0.4 0-0.8 10 ^3/uL Basophils # (Auto) 0.1 0-0.2 10 ^3/uL Nucleated Red Blood Cells 0.1 % Sodium Level 144 136-145 mmol/L Potassium Level 3.5 3.5-5.1 mmol/L Chloride Level 107 98-107 mmol/L Carbon Dioxide Level 29 20-31 mmol/L Anion Gap 8 5-15 Blood Urea Nitrogen 7 L 9-23 mg/dL Creatinine 0.93 0.700-1.30 mg/dL Glomerular Filtration Rate Calc 96 >90 mL/min BUN/Creatinine Ratio 7.5 L 10.0-20.0 Serum Glucose 86 74-106 mg/dL Hemoglobin A1c 5.7 <5.7 % A1C Calcium Level 9.4 8.7-10.4 mg/dL Magnesium Level 2.2 1.6-2.6 mg/dL Triglycerides Level 80 < 150 mg/dL Cholesterol Level 130 < 200 mg/dL LDL Cholesterol 72 < 100 mg/dL HDL Cholesterol 44 40-59 mg/dL Thyroid Stimulating Hormone (TSH) 0.73 0.55-4.78 uIU/mL Troponin I High Sensitivity 640 *H </=54 ng/L Lactic Acid Level 2.7 *H 0.4-2.0 mmol/L Total Bilirubin 0.5 0.2-1.0 mg/dL Aspartate Amino Transferase (AST) 22 13-40 U/L Alanine Aminotransferase (ALT) 21 7-40 U/L Alkaline Phosphatase 130 H 46-116 U/L Total Protein 7.4 5.7-8.2 g/dL Albumin 4.6 3.2-4.8 g/dL Test 06/02/24 15:00 Range/Units Urine Color Light-yellow Yellow Urine Clarity Clear Clear Urine pH 6.5 5.0-9.0 Urine Specific [place] 1.010 1.001-1.035 Urine Protein Negative Negative Urine Ketones Negative Negative Urine Blood Negative Negative /uL Urine Nitrite Negative Negative Urine Bilirubin Negative Negative Urine Urobilinogen Normal Negative mg/dL Urine Leukocyte Esterase Negative Negative /uL Urine RBC 3 0 - 3 /hpf Urine WBC 1 0 - 3 /hpf Urine Squamous Epithelial Cells None seen <5 /hpf Urine Bacteria None seen None Seen /hpf Urine Glucose 1+ H Normal mg/dL Assessment NSTEMI, rule out coronary artery disease Hypertensive urgency Acute on chronic HFrEF, NYHA class II, newly diagnosed Dilated cardiomyopathy Acute urinary retention History of tobacco use Plan/Recommendation We will continue with the following plan/recommendations (Dr. Govea): Transthoracic echocardiogram reveals EF 15% with global hypokinesia, RVSP 32 mmHg. Given that the patient has significant ST segment changes to twelve lead electrocardiogram and newly diagnosed HFrEF, we will recommend for the patient to undergo a coronary angiogram with left heart catheterization for ischemic workup. A Turkmen radio operator ground was used at time discussed the procedure in full detail including risks and benefits. Risks include but are not limited to bleeding, contrast induced nephropathy, stroke, and even . Patient understands and is agreeable to undergo the procedure. We will schedule the patient at first availability on 06/04/24. Thank you for allowing us to care for this patient. Please call with any questions or concerns. Critical care time spent: 40 minutes This medical document was created using an electronic medical record system with voice recognition software and computerized dictation system. Although this document has been carefully reviewed, there might still be some phonetic and typographical errors. Occasional wrong-word or ``sound-alike substitutions may have occurred due to the inherent limitations of voice recognition software. These areas are purely typographical due to imperfections of the software programs and do not reflect any compromise in the patient's medical care. Please read the chart carefully and recognize, using context, where these substitutions have occurred. Plan discussed with: Patient NYHA Physical activity limitations: Class2(Slight)fatigue,sob (palpitatns, angina w activityv) Date of Service: Jun 03, 2024 Billing Provider: SANDI GOVEA MD Cardiology Common Codes: [id number] INP/OBS CARE (High) Cardiology Consultation Codes: [id number] CONSULT <45MIN JENNIFER ORLANDOP Jun 03, 2024 10:29
--- NOTE | 2024-06-03 14:55 | DVHPN2 ---
Assessment/Plan Assessment/Plan Progress note Subjective 59-year-old male admitted for urinary retention, patient reported having prior episodes before months apart. Does not follow with Urology. In ED Ward was placed and during urine. No active chest pain Objective Physical exam Alert, oriented x3 PERRLA No JVD Clear breath sounds bilaterally S1-S2 regular rate and rhythm no murmur Abdomen soft nontender, no organomegaly No lower extremity edema Lab Lact 4 trop [address] abnormalitites Imaging CXR clear Assessment and plan Urinary retention Likely BPH Hypertensive urgency Type 2 NM demand ischemia Lactic acidosis old CVA with L sided residual smoker place ward urology consult UA, culture IVF bolus trend lactate cardio consult appreciated asa, high intensity statin NRT BP control prasozin valsartan strict I&O renal US Replete electrolytes Diet heart healthy DVT prophylaxis ambulatory Plan discussed with: Patient My Orders Orders - IRISH CRAIG MD Procedure Category Date Status Time Bladder Scan ORDERS 06/03/24 Transmitted 10:02 Date of Service: Jun 03, 2024 Billing Provider: IRISH CRAIG MD Common Visit Codes: [id number] INP/OBS CARE(HIGH) IRISH CRAIG MD Jun 03, 2024 14:55
--- NOTE | 2024-06-03 15:53 | DVH ---
RENAL ULTRASOUND CLINICAL HISTORY: retention r/o hydronephrosis TECHNIQUE: Multiple ultrasound images of the kidneys and bladder were obtained. COMPARISON: None FINDINGS: The right kidney measures 10.0 cm in length. The left kidney measures 10.2 cm. There is a 2.8 cm left upper pole renal cyst. There is no sonographic evidence of nephrolithiasis or hydronephrosis. There is a Harris catheter within the bladder which is contracted and poorly visualized. IMPRESSION: 1. 2.8 cm left upper pole renal cyst. 2. There is no sonographic evidence of nephrolithiasis or hydronephrosis. HS:Y
[2024-06-03] MEDS: VALSARTAN 80 MG TAB PO ONE (16:42)
--- NOTE | 2024-06-03 17:10 | DVHSR ---
APPROVED REPORT EXAM: Two-dimensional and M-mode echocardiogram with Doppler and color Doppler. Blood Pressure: 153/83 mmHg INDICATION Evaluate cardiac function RISK FACTORS Height: 5'2", Weight: 107 DIMENSIONS LVDd5.4 (3.8-5.7cm)LA (2D)4.8 (1.9-4.0cm)Aortic Root2.9 (2.0-3.7cm) LVDs5.0 (2.5-4.0cm)LA (MM) (1.9-4.0cm)Aortic Cusp Exc1.7 (1.5-2.0cm) EF (%) 16.0 (55-70%)Rt. Atrium3.9 (1.9-4.0cm)Asc. Aorta2.7 cm IVSd1.1 (0.7-1.1cm)RV (D) (1.8-2.4cm) Mitral Valve MitralMitral Stenosis E wave0.49m/sMV Mean GR.mmHg A wave1.36m/sMV Peak GR.mmHg E/A ratio0.42D MVAcm2 DECEL [id number] 1/2 Timems Aortic Valve Aortic ValveAortic Stenosis V10.93m/Arias Mean GR.3mmHg V21.05m/Arias Peak GR.4mmHg LVOT Diameter2.0 (1.8-2.4cm)Doppler AVA2.78cm2 Pulmonic Valve V20.76m/s Tricuspid Valve TR Velocity2.70m/s [id number] Conclusion Severely dilated left ventricle. Severely reduced left ventricular systolic function estimated eject ion fraction 15%. There is global wall akinesia. Severely dilated right ventricle. Severely reduced left ventricular systolic function. Mildly eleva divine right ventricular systolic [id number] mm of mercury Severely dilated right and left atria. Aortic valve is thickened there is mild aortic valve regurgitation. There is [id number] mitral valve regurgitation. There is mild to moderate tricuspid valve regurgitation. There is [id number] pulmonary valve regurgitation. No pericardial effusion.
[2024-06-03] MEDS ORDERED: TAMSULOSIN HYDROCHLORIDE 0.4 MG CAP PO SCH (18:00)
[2024-06-03] MEDS: ATORVASTATIN 20 MG TAB PO SCH (22:15)
[2024-06-03] MEDS: PRAZOSIN HCL 1 MG CAP PO SCH (22:15)
[2024-06-04] VITALS (15 sets, daily range): BP systolic 118–151; BP diastolic 61–91; PULSE 61–128; RESP 12–20; TEMP 97.6–98.6; O2SAT 94–100
[2024-06-04 06:13] LABS: Basophils # (auto) 0.1 10 ^3/uL (0-0.2); Basophils % (auto) 0.8 % (0.0-2.0); Eosinophils # (auto) 0.7 10 ^3/uL (0-0.8); Eosinophils % (auto) 8.6 % (0.0-7.0); Hematocrit 47.1 % (41.0-53.0); Hemoglobin 16.1 g/dL (13.5-17.5); Lymphocytes # (auto) 2.3 10 ^3/uL (0.4-5.4); Lymphocytes % (auto) 27.3 % (10.0-50.0); Mean Corpuscular Hgb Conc. 34.2 g/dL (32.0-36.0); Mean Corpuscular Volume 90.7 fL (80.0-100.0); Monocytes # (auto) 0.7 10 ^3/uL (0-1.3); Monocytes % (auto) 7.9 % (0.0-12.0); Neutrophils # (auto) 4.6 10 ^3/uL (1.6-8.6); Neutrophils % (auto) 55.4 % (37.0-80.0); Platelet Count (auto) 221 10^3/uL (140-450); Red Cell Distribution Width 13.9 % (11.8-14.3); White Blood Cell 8.3 10^3/uL (4.4-10.8)
[2024-06-04 06:21] LABS: Anion Gap 8 (5-15); Carbon Dioxide 27 mmol/L (20-31); Chloride 106 mmol/L (98-107); Sodium 141 mmol/L (136-145)
[2024-06-04 06:22] LABS: Calcium 9.7 mg/dL (8.7-10.4)
[2024-06-04 06:27] LABS: BUN/Creatinine Ratio 9.9 (10.0-20.0); Blood Urea Nitrogen 10 mg/dL (9-23); Glucose 92 mg/dL (74-106)
[2024-06-04 06:28] LABS: Potassium 3.3 mmol/L (3.5-5.1)
--- NOTE | 2024-06-04 08:33 | DVHPN2 ---
Assessment/Plan Assessment/Plan Progress note Subjective 59-year-old male admitted for urinary retention, patient reported having prior episodes before months apart. Does not follow with Urology. In ED Ward was placed and during urine. Seen patient during rounds, used residential nurse Plan for [facility] today, no hydronephrosis on renal US, started on prasozin, pending uro consult. GDMT initiated by cardio Objective Physical exam Alert, oriented x3 PERRLA No JVD Clear breath sounds bilaterally S1-S2 regular rate and rhythm Abdomen soft nontender, no organomegaly No lower extremity edema Lab Lact 4 trop 600 K 3.[address] abnormalitites Imaging CXR clear echo DCM EF 15% RVSP 32 MR TR PI Assessment and plan Urinary retention Likely BPH Hypertensive urgency Type 2 CA demand ischemia new diagnosed heart failure with reduced ejection fraction chronic systolic heart failure Lactic acidosis resolved old CVA with L sided residual smoker hypokalemia place ward urology consult UA, culture IVF bolus trend lactate cardio consult appreciated asa, high intensity statin start jardiance, aldactone, metop succinate patient for [facility] today NRT BP control prasozin valsartan valsartan can be switched to entresto prior to DC strict I&O daily weight renal US with no hydronephrosis send BNP prior to DC Replete electrolytes Diet heart healthy DVT prophylaxis ambulatory Plan discussed with: Patient My Orders Orders - IRISH CRAIG MD Procedure Category Date Status Time Bladder Scan ORDERS 06/03/24 Transmitted 10:02 Aspirin Tablet PHA 06/04/24 In Process 10:00 Atorvastatin (Lipitor) PHA 06/03/24 In Process 22:00 Kidney US 06/03/24 Resulted 14:50 Prazosin Hcl Capsule PHA 06/03/24 In Process (Minipres Capsule) 22:00 Valsartan (Diovan) PHA 06/04/24 In Process 10:00 Date of Service: Jun 04, 2024 Billing Provider: IRISH CRAIG MD Common Visit Codes: [id number] INP/OBS CARE(HIGH) IRISH CRAIG MD Jun 04, 2024 08:33
[2024-06-04] MEDS: POTASSIUM EFFERVESENT TAB 25 MEQ PO ONE (09:27)
--- NOTE | 2024-06-04 13:25 | DVHOP2 ---
Operative Report -Cardiology Report Details Date: 06/04/24 Preop Diagnosis: Non ST-elevation myocardial infarction. Postop Diagnosis: Coronary angiography done sedation revealed severe three-vessel disease involving prox LAD, ostial diagonal branch, as well as chronic total occlusion of the right coronary mid segment. Given the diffuse nature of the disease patient would benefit from coronary artery bypass graft surgery. Thus patient would need to be referred to higher level care. Surgeon: Eli Rao MD Anesthesiologist: Conscious sedation using25 mcg of fentanyl as well as a mg IV midazolam. They were given under the direct supervision of myself the primary miniature set constructor in the presence of the attending nurses. Patient was monitored for total of35 minutes. There was no obvious complication. Anesthesia: Local Consent: The patient was informed of the risks and benefits of the procedure. These include but are not limited to complications of anesthesia, postoperative infection, incomplete relief of symptoms, recurrence of symptoms, damage to blood vessels, nerves and tendons, deep venous thrombosis, pulmonary embolism and possible need for repeat surgery in the future. Indications for Surgery: This is a 59-year-old [place] patient was admitted to the hospital with a urinary tract infection. And urinary retention. As part of his workup had an EKG and cardiac enzyme both of which shows dynamic EKG changes is in the infer ior leads with a positive troponin. On further questioning patient admitted having shortness of breath likely. His echocardiogram revealed severely reduced left ventricular systolic function with estimated ejection fraction of 15%. Thus coronary angiography was done today to rule out ischemic heart disease. Name of Procedure Performed 1. Left heart catheterization with left ventricular end-diastolic pressure measurement. 2. Selective right and left coronary angiography utilizing right transradial approach. 3. Conscious sedation using25 mcg of fentanyl as well as a mg IV midazolam. Procedure Details Procedure Details: Procedural note and vascular access: After informed consent was obtained, risks, benefits, complications, and alternatives were discussed in details with the patient who agrees to have the procedure done. At the beginning of the procedure, the right wrist and the right groin area were prepped and draped in the regular sterile fashion. Patient received conscious sedation was25 mcg of fentanyl as well as a mg of midazolam. Thereafter, patient received a total of2 cc of 1% xylocaine to the right wrist area before a six Angolan sheath was placed using modified Seldinger technique without difficulty. A cocktail of 2.5 mg of verapamil as well as 100 mcg of nitroglycerin were given intra-arterial to prevent vasospasm. Elsie five Angolan catheter as well as a J-tip [employer] [place] wire was used to engage the right and left coronary system. Patient received a total of 3000 heparin upon crossing the aortic arch. Findings were as follows: 1. Left heart catheterization with left ventricular end-diastolic pressure measurement: With the help of a tiger five Angolan catheter as well as a J-tip wire we were able to cross the aortic valve and measured left ventricular end-diastolic pressure which was low at 4 mm of mercury. There was no gradient across the aortic valve on the pullback. 2. Selective right and left coronary angiography utilizing right transradial approach: 1. The left main comes off the left coronary cusp it is widely patent it bifurcates distally into a large left anterior descending artery and medium- sized left circumflex vessel. 2. The left anterior descending artery it is a large vessel gives rise to two large diagonal branches, there is a proximal to mid 90% stenosis of the LAD that is heavily calcified, the ostium of the 1st and 2nd diagonal branch has 85% stenosis. 3. The left circumflex vessel is medium-sized vessel it gives rise to two obtuse marginal branches there is mild irregularity but no discrete stenosis noted. 4. The right coronary artery comes off the right coronary cusp it is a large dominant system. It bifurcates distally into large posterior descending artery as well as a large posterolateral branches. The right coronary artery has proxi mal tandem lesion at 90% followed by chronic total occlusion of the mid segment. There is a grade 3 collaterals coming off the left system towards the right distal part including the PDA and the posterolateral branch. Impression and plan: 1. Diffuse three-vessel disease involving the prox LAD, large two diagonal branches, as well as chronic total occlusion of right coronary artery. 2. Given reduced ejection fraction with three-vessel disease I would recommend coronary artery bypass graft surgery for the patient's particularly with a good distal targets. 3. Given reduced ejection fraction I would recommend also starting goal-directed medical therapy as per guidelines, in addition to continuous administration of IV heparin until patient transferred to higher level care. Condition Fair CS Clinical Frailty Scale [facility] Clinical Frailty Scale: Mildly Frail Stress Test Stress Test Performed: No Dominance Dominance: Right Disposition ELI RAO MD Jun 04, 2024 13:25
--- NOTE | 2024-06-04 14:05 | DVHDS2 ---
Discharge Summary Date of Admission Jun 02, 2024 at 18:53 Date of Discharge: Jun 04, 2024 Labs/Diagnostic Data: Laboratory Results Test 06/04/24 05:10 06/03/24 15:28 06/03/24 05:45 06/02/24 23:14 White Blood Count 8.3 10^3/uL (4.4-10.8) Red Blood Count 5.20 10^6/uL (4.5-5.90) Hemoglobin 16.1 g/dL (13.5-17.5) Hematocrit 47.1 % (41.0-53.0) Mean Corpuscular Volume 90.7 fL (80.0-100.0) Mean Corpuscular Hemoglobin 31.0 pg (28.0-32.0) Mean Corpuscular Hemoglobin Concent 34.2 g/dL (32.0-36.0) Red Cell Distribution Width 13.9 % (11.8-14.3) Platelet Count 221 10^3/uL (140-450) Mean Platelet Volume 8.4 fL (6.9-10.8) Neutrophils (%) (Auto) 55.4 % (37.0-80.0) Lymphocytes (%) (Auto) 27.3 % (10.0-50.0) Monocytes (%) (Auto) 7.9 % (0.0-12.0) Eosinophils (%) (Auto) 8.6 % (0.0-7.0) Basophils (%) (Auto) 0.8 % (0.0-2.0) Neutrophils # (Auto) 4.6 10 ^3/uL (1.6-8.6) Lymphocytes # (Auto) 2.3 10 ^3/uL (0.4-5.4) Monocytes # (Auto) 0.7 10 ^3/uL (0-1.3) Eosinophils # (Auto) 0.7 10 ^3/uL (0-0.8) Basophils # (Auto) 0.1 10 ^3/uL (0-0.2) Nucleated Red Blood Cells 0.0 % Sodium Level 141 mmol/L (136-145) Potassium Level 3.3 mmol/L (3.5-5.1) Chloride Level 106 mmol/L (98-107) Carbon Dioxide Level 27 mmol/L (20-31) Anion Gap 8 (5-15) Blood Urea Nitrogen 10 mg/dL (9-23) Creatinine 1.01 mg/dL (0.700-1.30) Glomerular Filtration Rate Calc 87 mL/min (>90) BUN/Creatinine Ratio 9.9 (10.0-20.0) Serum Glucose 92 mg/dL (74-106) Calcium Level 9.7 mg/dL (8.7-10.4) Lactic Acid Level 1.5 mmol/L (0.4-2.0) Hemoglobin A1c 5.7 % A1C (<5.7) Magnesium Level 2.2 mg/dL (1.6-2.6) Triglycerides Level 80 mg/dL (< 150) Cholesterol Level 130 mg/dL (< 200) LDL Cholesterol 72 mg/dL (< 100) HDL Cholesterol 44 mg/dL (40-59) Thyroid Stimulating Hormone (TSH) 0.73 uIU/mL (0.55-4.78) Troponin I High Sensitivity 640 ng/L (</=54) Test 06/02/24 15:35 06/02/24 15:00 Total Bilirubin 0.5 mg/dL (0.2-1.0) Aspartate Amino Transferase (AST) 22 U/L (13-40) Alanine Aminotransferase (ALT) 21 U/L (7-40) Alkaline Phosphatase 130 U/L (46-116) Total Protein 7.4 g/dL (5.7-8.2) Albumin 4.6 g/dL (3.2-4.8) Urine Color Light-yellow (Yellow) Urine Clarity Clear (Clear) Urine pH 6.5 (5.0-9.0) Urine Specific Burke 1.010 (1.001-1.035) Urine Protein Negative (Negative) Urine Ketones Negative (Negative) Urine Blood Negative /uL (Negative) Urine Nitrite Negative (Negative) Urine Bilirubin Negative (Negative) Urine Urobilinogen Normal mg/dL (Negative) Urine Leukocyte Esterase Negative /uL (Negative) Urine RBC 3 /hpf (0 - 3) Urine WBC 1 /hpf (0 - 3) Urine Squamous Epithelial Cells None seen /hpf (<5) Urine Bacteria None seen /hpf (None Seen) Urine Glucose 1+ mg/dL (Normal) Other Laboratory Tests 06/04/24 05:10 Brief Hx & Hospital Course: 59-year-old male admitted for urinary retention. The patient was placed on Harris, incidentally found to have elevated troponin, echo with severely decreased ejection fraction. Patient received left heart catheterization today and found to have severe three-vessel disease. Patient will benefit from CABG. Social service consulted for transferred to higher level of care Condition at Discharge: Higher Level of Care Final Diagnosis/Problems List Coronary angiography done sedation revealed severe three-vessel diseaseinvolving prox LAD, ostial diagonal branch, as well as chronic totalocclusion of the right coronary mid segment. Given the diffuse nature ofthe disease patient would benefit from coronary artery bypass graftsurgery. Thus patient would need to be referred to higher level care. Discharge Disposition: Acute Care Facility Discharge Instruct/Medications Diet: Consistent carbohydrate, Cardiac 2g Na,low cholest Activity: No Restrictions, As Tolerated 35 Discharge Statement: "Patient was advised to return to the ER or call 911 if any headaches, dizziness, shortness of breath, chest pain, abdominal pain, bleeding, fevers, or worsening of medical condition. Patient was counseled about treatment plan, medications, possible side effects, patientverbalized understanding. All questions were answered to the best of my ability. 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
[2024-06-04] MEDS: IODIXANOL 320MG/ML 100ML BTL IV ONE (15:15)
[2024-06-04] MEDS: VERAPAMIL 2.5MG/ML INJ 2ML VIAL IV ONE (15:15)
[2024-06-04] MEDS: MIDAZOLAM HCL 2MG/2ML 2ml VIAL (1mg/ml) ONE (15:15)
[2024-06-04] MEDS: ANGIOMAX 250 MG VIAL IV ONE (15:15)
[2024-06-04] MEDS: SODIUM CHL 0.9% 0 ML ONE (15:15)
[2024-06-04] MEDS: LIDOCAINE 2%HCL (LOCAL ANESTH.) INJ 20ML MDV ONE (15:15)
[2024-06-04] MEDS: fentaNYL CITRATE 100 MCG/2 ML VL ONE (15:15)
[2024-06-04] MEDS: HEPARIN SODIUM (PORCINE) 5000 UNITS/ML 1ML VIAL ONE (15:15)
[2024-06-04 15:22] LABS: Basophils # (auto) 0.1 10 ^3/uL (0-0.2); Basophils % (auto) 0.7 % (0.0-2.0); Eosinophils # (auto) 0.8 10 ^3/uL (0-0.8); Eosinophils % (auto) 8.6 % (0.0-7.0); Hematocrit 49.8 % (41.0-53.0); Hemoglobin 17.1 g/dL (13.5-17.5); Lymphocytes # (auto) 2.6 10 ^3/uL (0.4-5.4); Lymphocytes % (auto) 29.3 % (10.0-50.0); Mean Corpuscular Hgb Conc. 34.2 g/dL (32.0-36.0); Mean Corpuscular Volume 90.7 fL (80.0-100.0); Monocytes # (auto) 0.6 10 ^3/uL (0-1.3); Monocytes % (auto) 6.8 % (0.0-12.0); Neutrophils # (auto) 4.9 10 ^3/uL (1.6-8.6); Neutrophils % (auto) 54.6 % (37.0-80.0); Nucleated Red Blood Cells % 0.1 %; Platelet Count (auto) 241 10^3/uL (140-450); Red Blood Cells 5.49 10^6/uL (4.5-5.90); White Blood Cell 8.9 10^3/uL (4.4-10.8)
[2024-06-04 15:42] LABS: INR 1.07 (0.9-1.15); Partial Thromboplastin Time 54.1 SEC (24.5-34.5); Prothrombin Time 11.3 sec (9.3-11.8)
[2024-06-04] MEDS: ASPirin 81 mg TAB PO SCH (16:25)
[2024-06-04] MEDS: EMPAGLIFLOZIN 10 MG TAB PO SCH (16:26)
[2024-06-04] MEDS: VALSARTAN 80 MG TAB PO SCH (16:29)
[2024-06-04] MEDS: METOPROLOL SUCCINATE XL 50 MG TAB PO SCH (16:30)
[2024-06-04] MEDS: SPIRONOLACTONE 25 MG TAB PO SCH (16:32)
[2024-06-04] MEDS: HEPARIN DRIP/D5W 100UNITS/ML 250 ML IV SCH ×2 (18:28→23:00)
[2024-06-04 21:44] LABS: INR 1.08 (0.9-1.15); Partial Thromboplastin Time 34.5 SEC (24.5-34.5); Prothrombin Time 11.4 sec (9.3-11.8)
[2024-06-04] MEDS: HEPARIN SODIUM (PORCINE) 5000 UNITS/ML 1ML VIAL IV ONE (22:53)
[2024-06-05] VITALS (8 sets, daily range): BP systolic 93–154; BP diastolic 39–83; PULSE 57–67; RESP 15–20; TEMP 97.7–98.5; O2SAT 94–99
[2024-06-05 07:11] LABS: Anion Gap 7 (5-15); Carbon Dioxide 28 mmol/L (20-31); Chloride 104 mmol/L (98-107); Potassium 4.1 mmol/L (3.5-5.1); Sodium 139 mmol/L (136-145)
[2024-06-05 07:12] LABS: Calcium 9.7 mg/dL (8.7-10.4)
[2024-06-05 07:17] LABS: BUN/Creatinine Ratio 11.2 (10.0-20.0); Blood Urea Nitrogen 12 mg/dL (9-23); Glucose 98 mg/dL (74-106)
[2024-06-05 07:18] LABS: Basophils # (auto) 0.1 10 ^3/uL (0-0.2); Basophils % (auto) 0.8 % (0.0-2.0); Eosinophils % (auto) 12.6 % (0.0-7.0); Hematocrit 46.9 % (41.0-53.0); Hemoglobin 16.1 g/dL (13.5-17.5); Lymphocytes # (auto) 1.7 10 ^3/uL (0.4-5.4); Mean Corpuscular Hemoglobin 31.2 pg (28.0-32.0); Mean Corpuscular Hgb Conc. 34.4 g/dL (32.0-36.0); Mean Corpuscular Volume 90.5 fL (80.0-100.0); Monocytes # (auto) 0.4 10 ^3/uL (0-1.3); Monocytes % (auto) 5.2 % (0.0-12.0); Neutrophils # (auto) 4.6 10 ^3/uL (1.6-8.6); Neutrophils % (auto) 59.4 % (37.0-80.0); Platelet Count (auto) 215 10^3/uL (140-450); Red Blood Cells 5.18 10^6/uL (4.5-5.90); Red Cell Distribution Width 13.7 % (11.8-14.3); White Blood Cell 7.7 10^3/uL (4.4-10.8)
[2024-06-05 08:01] LABS: INR 1.13 (0.9-1.15); Prothrombin Time 11.9 sec (9.3-11.8)
[2024-06-05 08:13] LABS: Partial Thromboplastin Time > 139.0 SEC (24.5-34.5)
[2024-06-05] MEDS: HEPARIN DRIP/D5W 100UNITS/ML 250 ML IV SCH ×2 (11:06→20:00)
--- NOTE | 2024-06-05 16:46 | DVHPN2 ---
Assessment/Plan Assessment/Plan Progress note Subjective 59-year-old male admitted for urinary retention, patient reported having prior episodes before months apart. Does not follow with Urology. In ED Ward was placed and during urine. Seen patient during rounds, used corporate webmaster [facility] with severe trivessel, plan for transfer HLOC. 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 hypokalemia severe tri vessel CAD place ward urology consult UA, culture IVF bolus trend lactate cardio consult appreciated asa, high intensity statin start jardiance, aldactone, metop succinate NRT BP control prasozin valsartan valsartan can be switched to entresto prior to DC strict I&O daily weight renal US with no hydronephrosis atransfer HLOC for CBAG Replete electrolytes Diet heart healthy DVT prophylaxis ambulatory Plan discussed with: Patient Date of Service: Jun 05, 2024 Billing Provider: IRISH CRAIG MD Common Visit Codes: [id number] INP/OBS CARE(HIGH) IRISH CRAIG MD Jun 05, 2024 16:46
--- NOTE | 2024-06-05 17:40 | DVHPN2 ---
Consult Progress Note Subjective Other Systems: Patient remains on heparin drip. Denies any cardiac symptoms at time of assessment Objective vital signs Vital Sign Date Time Temp Pulse Resp B/P (MAP) Pulse Ox O2 Delivery O2 Flow Rate FiO2 06/05/24 13:00 98.5 57 18 128/71 (90) 97 98.5 06/05/24 08:10 Room Air* 0 21 Total Intake and Output 06/04/24 06/04/24 06/05/24 15:00 23:00 07:00 Intake Total 240 ml 700 ml Output Total 375 ml Balance -135 ml 700 ml medications Current Medications Medications Dose Ordered Sig/Harman Route Start Time Stop Time Status Last Admin Dose Admin Acetaminophen 650 mg Q6HP PRN PO 06/02/24 19:00 Aspirin 81 mg DAILY PO 06/04/24 10:00 06/05/24 09:37 81 MG Atorvastatin Calcium 80 mg HS PO 06/03/24 22:00 06/04/24 21:58 80 MG Prazosin HCl 1 mg Q12HR PO 06/03/24 22:00 06/04/24 21:59 1 MG Valsartan 80 mg DAILY PO 06/04/24 10:00 06/04/24 16:29 80 MG Spironolactone 25 mg DAILY PO 06/04/24 10:00 06/05/24 09:36 25 MG Metoprolol Succinate 25 mg DAILY PO 06/04/24 10:00 06/04/24 16:30 25 MG Empaglifozin 10 mg DAILY PO 06/04/24 10:00 06/05/24 09:36 10 MG Heparin Sodium/ Dextrose 250 ml @ 6 mls/hr Q24H IV 06/05/24 10:00 06/05/24 11:06 6 MLS/HR Examination: GENERAL:Normal, LUNGS:Normal, CVS:Normal, NEURO:Normal laboratory and microbiology Laboratory Tests 06/05/24 06:00 Test 06/05/24 06:00 Range/Units Serum Glucose 98 74-106 mg/dL Problem List/Assessment/Plan Problem List/Assessment/Plan NSTEMI, coronary artery disease with diffuse three-vessel disease Hypertensive urgency Acute on chronic HFrEF, NYHA class II, newly diagnosed Dilated cardiomyopathy Acute urinary retention History of tobacco use Plan/Recommendation (Dr. Govea): Transthoracic echocardiogram reveals EF 15% with global hypokinesia, RVSP 32 mmHg. The patient underwent a coronary angiogram with left heart catheterization on 06/04/24 which revealed diffuse three-vessel disease involving the proximal LAD, large two diagonal branches, as well as a chronic total occlusion of the right coronary artery. At this time we will recommend for the patient to be transferred to higher level of care for possible CABG. At this time, the patient remains on heparin drip. Pending transfer at this time. In the meantime, continue with guideline directed medical therapy for CHF as tolerated. Thank you for allowing us to care for this patient. Please call with any questions or concerns. This medical document was created using an electronic medical record system with voice recognition software and computerized dictation system. Although this document has been carefully reviewed, there might still be some phonetic and typographical errors. Occasional wrong-word or ``sound-alike substitutions may have occurred due to the inherent limitations of voice recognition software. These areas are purely typographical due to imperfections of the software programs and do not reflect any compromise in the patient's medical care. Please read the chart carefully and recognize, using context, where these substitutions have occurred. Plan discussed with: Patient Date of Service: Jun 05, 2024 Billing Provider: SANDI GOVEA MD Common Visit Codes: [id number] INP/OBS CARE(HIGH) JENNIFER [place] [employer] Jun 05, 2024 17:40
[2024-06-05 18:21] LABS: INR 1.06 (0.9-1.15); Partial Thromboplastin Time 45.7 SEC (24.5-34.5); Prothrombin Time 11.2 sec (9.3-11.8)
[2024-06-06] VITALS (8 sets, daily range): BP systolic 105–132; BP diastolic 57–76; PULSE 59–76; RESP 16–20; TEMP 97.6–98.3; O2SAT 95–98
[2024-06-06 02:43] LABS: INR 1.08 (0.9-1.15); Prothrombin Time 11.4 sec (9.3-11.8)
[2024-06-06 02:55] LABS: Partial Thromboplastin Time 74.5 SEC (24.5-34.5)
[2024-06-06 06:13] LABS: Hematocrit 45.4 % (41.0-53.0); Hemoglobin 15.6 g/dL (13.5-17.5); Mean Corpuscular Hemoglobin 31.3 pg (28.0-32.0); Mean Corpuscular Hgb Conc. 34.4 g/dL (32.0-36.0); Mean Corpuscular Volume 91.1 fL (80.0-100.0); Platelet Count (auto) 214 10^3/uL (140-450); Red Blood Cells 4.98 10^6/uL (4.5-5.90); Red Cell Distribution Width 13.7 % (11.8-14.3); White Blood Cell 7.6 10^3/uL (4.4-10.8)
[2024-06-06 06:22] LABS: Band Neutrophils % (manual) 0; Basophils % (manual) 0 (0.0-2.0); Blast Cells 0; Metamyelocytes % 0; Myelocytes % 0; Promyelocytes % 0; Reactive Lymphocytes 0
[2024-06-06 08:16] LABS: Eosinophils % (manual) 19 (0-7); Lymphocytes % (manual) 30 (10.0-50.0); Monocytes % (manual) 6 (0-12); Platelet Estimate Adequate
[2024-06-06 10:14] LABS: INR 1.08 (0.9-1.15); Prothrombin Time 11.4 sec (9.3-11.8)
[2024-06-06 10:28] LABS: Partial Thromboplastin Time 80.6 SEC (24.5-34.5)
[2024-06-06] MEDS: HEPARIN DRIP/D5W 100UNITS/ML 250 ML IV SCH (10:47)
--- NOTE | 2024-06-06 13:38 | DVHPN2 ---
Assessment/Plan Assessment/Plan Progress note Subjective 59-year-old male admitted for urinary retention, patient reported having prior episodes before months apart. Does not follow with Urology. In ED Ward was placed and during urine. Seen patient during rounds, used service dog trainer [facility] with severe trivessel, plan for transfer HLOC. 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 hypokalemia severe tri vessel CAD place ward urology consult UA, culture IVF bolus trend lactate cardio consult appreciated asa, high intensity statin start jardiance, aldactone, metop succinate NRT BP control prasozin valsartan valsartan can be switched to entresto prior to DC strict I&O daily weight renal US with no hydronephrosis atransfer HLOC for CBAG Replete electrolytes Diet heart healthy DVT prophylaxis ambulatory Plan discussed with: Patient Date of Service: Jun 06, 2024 Billing Provider: IRISH CRAIG MD Common Visit Codes: [id number] INP/OBS CARE(HIGH) IRISH CRAIG MD Jun 06, 2024 13:38
--- NOTE | 2024-06-06 13:49 | DVHPN2 ---
Consult Progress Note Subjective Patient reports: No new complaints Other Systems: Patient is seen and assessed at bedside, denies any active overnight cardiac symptoms of chest pain, palpitation, shortness of breath. Objective vital signs Vital Sign Date Time Temp Pulse Resp B/P (MAP) Pulse Ox O2 Delivery O2 Flow Rate FiO2 06/06/24 13:00 98.1 59 20 116/66 (83) 96 98.1 06/06/24 08:00 Room Air* 0 21 Total Intake and Output 06/05/24 06/05/24 06/06/24 15:00 23:00 07:00 Intake Total 480 ml 550 ml Output Total 350 ml 100 ml Balance 130 ml 450 ml medications Current Medications Medications Dose Ordered Sig/Harman Route Start Time Stop Time Status Last Admin Dose Admin Acetaminophen 650 mg Q6HP PRN PO 06/02/24 19:00 Aspirin 81 mg DAILY PO 06/04/24 10:00 06/06/24 10:18 81 MG Atorvastatin Calcium 80 mg HS PO 06/03/24 22:00 06/05/24 21:56 80 MG Prazosin HCl 1 mg Q12HR PO 06/03/24 22:00 06/06/24 10:18 1 MG Valsartan 80 mg DAILY PO 06/04/24 10:00 06/06/24 10:18 80 MG Spironolactone 25 mg DAILY PO 06/04/24 10:00 06/06/24 10:18 25 MG Metoprolol Succinate 25 mg DAILY PO 06/04/24 10:00 06/06/24 10:18 25 MG Empaglifozin 10 mg DAILY PO 06/04/24 10:00 06/06/24 10:18 10 MG Heparin Sodium/ Dextrose 250 ml @ 6 mls/hr Q24H IV 06/06/24 10:45 06/06/24 10:47 6 MLS/HR Examination: CVS:Normal (Telemetry reviewed and consistent with sinus rhythm at 65 beats per minute, no overnight events noted.) laboratory and microbiology Laboratory Tests 06/06/24 05:15 06/05/24 06:00 Test 06/05/24 06:00 Range/Units Serum Glucose 98 74-106 mg/dL Problem List/Assessment/Plan Problem List/Assessment/Plan Problem List/Assessment/Plan NSTEMI, coronary artery disease with diffuse three-vessel disease Hypertensive urgency Acute on chronic HFrEF, NYHA class II, newly diagnosed Dilated cardiomyopathy Acute urinary retention History of tobacco use Plan/Recommendation (Dr. Govea): Transthoracic echocardiogram reveals EF 15% with global hypokinesia, RVSP 32 mmHg. The patient underwent a coronary angiogram with left heart catheterization on 06/04/24 which revealed diffuse three-vessel disease involving the proximal LAD, large two diagonal branches, as well as a chronic total occlusion of the right coronary artery. At this time we will recommend for the patient to be transferred to higher level of care for possible CABG. At this time, the patient remains on heparin drip. Awaiting HLOC transfer at this time. In the meantime, continue with guideline directed medical therapy for CHF as tolerated. Thank you for allowing us to care for this patient. Please call with any questions or concerns. This medical document was created using an electronic medical record system with voice recognition software and computerized dictation system. Although this document has been carefully reviewed, there might still be some phonetic and typographical errors. Occasional wrong-word or ``sound-alike substitutions may have occurred due to the inherent limitations of voice recognition software. These areas are purely typographical due to imperfections of the software programs and do not reflect any compromise in the patient's medical care. Please read the chart carefully and recognize, using context, where these substitutions have occurred. Plan discussed with: Patient (with translation device) Date of Service: Jun 06, 2024 Billing Provider: SANDI GOVEA MD Common Visit Codes: [id number] INP/OBS CARE(HIGH) [facility] Jun 06, 2024 13:49
[2024-06-06 17:14] LABS: INR 1.11 (0.9-1.15); Partial Thromboplastin Time 58.7 SEC (24.5-34.5); Prothrombin Time 11.7 sec (9.3-11.8)
[2024-06-06 23:51] LABS: INR 1.05 (0.9-1.15); Prothrombin Time 11.1 sec (9.3-11.8)
[2024-06-07] VITALS (8 sets, daily range): BP systolic 98–117; BP diastolic 55–69; PULSE 60–65; RESP 16–19; TEMP 97.6–98.4; O2SAT 96–99
[2024-06-07 05:51] LABS: Basophils # (auto) 0 10 ^3/uL (0-0.2); Basophils % (auto) 0.4 % (0.0-2.0); Eosinophils # (auto) 1.1 10 ^3/uL (0-0.8); Eosinophils % (auto) 12.8 % (0.0-7.0); Hematocrit 46.1 % (41.0-53.0); Hemoglobin 15.7 g/dL (13.5-17.5); Lymphocytes # (auto) 2.2 10 ^3/uL (0.4-5.4); Lymphocytes % (auto) 25.4 % (10.0-50.0); Mean Corpuscular Volume 91.3 fL (80.0-100.0); Monocytes # (auto) 0.6 10 ^3/uL (0-1.3); Neutrophils # (auto) 4.7 10 ^3/uL (1.6-8.6); Neutrophils % (auto) 54.4 % (37.0-80.0); Nucleated Red Blood Cells % 0.1 %; Platelet Count (auto) 220 10^3/uL (140-450); Red Blood Cells 5.05 10^6/uL (4.5-5.90); Red Cell Distribution Width 13.8 % (11.8-14.3); White Blood Cell 8.7 10^3/uL (4.4-10.8)
[2024-06-07 06:01] LABS: INR 1.04 (0.9-1.15); Partial Thromboplastin Time 50.1 SEC (24.5-34.5)
[2024-06-07 08:04] LABS: Alanine Aminotransferase 19 U/L (7-40); Alkaline Phosphatase 96 U/L (46-116); Anion Gap 7 (5-15); Aspartate Aminotransferase 26 U/L (13-40); BUN/Creatinine Ratio 16.8 (10.0-20.0); Blood Urea Nitrogen 18 mg/dL (9-23); Calcium 9.6 mg/dL (8.7-10.4); Carbon Dioxide 26 mmol/L (20-31); Chloride 106 mmol/L (98-107); Glucose 83 mg/dL (74-106); Magnesium 2.4 mg/dL (1.6-2.6); Potassium 4.5 mmol/L (3.5-5.1); Sodium 139 mmol/L (136-145)
[2024-06-07 08:05] LABS: Bilirubin, Total 0.7 mg/dL (0.2-1.0); Total Protein 6.6 g/dL (5.7-8.2)
--- NOTE | 2024-06-07 13:32 | DVHPN2 ---
Consult Progress Note Subjective Patient reports: No new complaints Review of Systems: CVS:Normal (Denies chest pain, palpitation, shortness of breath) Objective vital signs Vital Sign Date Time Temp Pulse Resp B/P (MAP) Pulse Ox O2 Delivery O2 Flow Rate FiO2 06/07/24 10:06 65 117/69 06/07/24 08:00 18 98 Room Air* 0 21 06/07/24 05:00 97.6 97.6 Total Intake and Output 06/06/24 06/06/24 06/07/24 15:00 23:00 07:00 Intake Total 640 ml 269 ml Output Total 300 ml 100 ml Balance 340 ml 169 ml medications Current Medications Medications Dose Ordered Sig/Harman Route Start Time Stop Time Status Last Admin Dose Admin Acetaminophen 650 mg Q6HP PRN PO 06/02/24 19:00 Aspirin 81 mg DAILY PO 06/04/24 10:00 06/07/24 10:07 81 MG Atorvastatin Calcium 80 mg HS PO 06/03/24 22:00 06/06/24 21:27 80 MG Prazosin HCl 1 mg Q12HR PO 06/03/24 22:00 06/07/24 10:05 1 MG Valsartan 80 mg DAILY PO 06/04/24 10:00 06/07/24 10:06 80 MG Spironolactone 25 mg DAILY PO 06/04/24 10:00 06/07/24 10:05 25 MG Metoprolol Succinate 25 mg DAILY PO 06/04/24 10:00 06/07/24 10:06 25 MG Empaglifozin 10 mg DAILY PO 06/04/24 10:00 06/07/24 10:07 10 MG Heparin Sodium/ Dextrose 250 ml @ 6 mls/hr Q24H IV 06/06/24 10:45 06/06/24 10:47 6 MLS/HR Examination: CVS:Normal (Telemetry consistent with sinus rhythm at 95 beats per minute, no overnight events/arrhythmias noted), :Abnormal (Harris catheter) laboratory and microbiology Laboratory Tests 06/07/24 04:57 Test 06/07/24 04:57 Range/Units Serum Glucose 83 74-106 mg/dL Problem List/Assessment/Plan Problem List/Assessment/Plan Problem List/Assessment/Plan NSTEMI, coronary artery disease with diffuse three-vessel disease Hypertensive urgency Acute on chronic HFrEF, NYHA class II, newly diagnosed Dilated cardiomyopathy Acute urinary retention History of tobacco use Hypokalemia Plan/Recommendation (Dr. Govea): Transthoracic echocardiogram reveals EF 15% with global hypokinesia, RVSP 32 mmHg. S/p coronary angiogram 06/04/24 which revealed diffuse three-vessel disease involving the proximal LAD, large two diagonal branches, as well as a chronic total occlusion of the right coronary artery. Awaiting transfer to higher level of care for possible CABG. Continued on heparin drip. No current cardiac symptoms. In the meantime, continue with guideline directed medical therapy for CHF as tolerated. Monitoring replace electrolytes. Thank you for allowing us to care for this patient. Please call with any questions or concerns. This medical document was created using an electronic medical record system with voice recognition software and computerized dictation system. Although this document has been carefully reviewed, there might still be some phonetic and typographical errors. Occasional wrong-word or ``sound-alike substitutions may have occurred due to the inherent limitations of voice recognition software. These areas are purely typographical due to imperfections of the software programs and do not reflect any compromise in the patient's medical care. Please read the chart carefully and recognize, using context, where these substitutions have occurred. Plan discussed with: Patient Date of Service: Jun 07, 2024 Billing Provider: SANDI GOVEA MD Common Visit Codes: [id number] INP/OBS CARE(HIGH) [facility] Jun 07, 2024 13:32
--- NOTE | 2024-06-07 15:11 | DVHPN2 ---
Assessment/Plan Assessment/Plan Progress note Subjective 59-year-old male admitted for urinary retention, patient reported having prior episodes before months apart. Does not follow with Urology. In ED Ward was placed and during urine. Seen patient during rounds, used director of database marketing [facility] with severe trivessel, plan for transfer HLOC. reject by [facility] due to low EF, per CT surgeon to transfer for transplant eval. 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 hypokalemia severe tri vessel CAD place ward urology consult UA, culture IVF bolus trend lactate cardio consult appreciated asa, high intensity statin start jardiance, aldactone, metop succinate NRT BP control prasozin valsartan valsartan can be switched to entresto prior to DC strict I&O daily weight renal US with no hydronephrosis atransfer HLOC for CBAG Replete electrolytes Diet heart healthy DVT prophylaxis ambulatory Plan discussed with: Patient Date of Service: Jun 07, 2024 Billing Provider: IRISH CRAIG MD Common Visit Codes: [id number] INP/OBS CARE(HIGH) IRISH CRAIG MD Jun 07, 2024 15:11
[2024-06-08] VITALS (7 sets, daily range): BP systolic 91–136; BP diastolic 53–65; PULSE 55–69; RESP 16–18; TEMP 97.7–98.5; O2SAT 95–100
[2024-06-08 05:58] LABS: Basophils # (auto) 0 10 ^3/uL (0-0.2); Basophils % (auto) 0.7 % (0.0-2.0); Eosinophils # (auto) 0.8 10 ^3/uL (0-0.8); Eosinophils % (auto) 12.7 % (0.0-7.0); Hematocrit 46.5 % (41.0-53.0); Hemoglobin 16.1 g/dL (13.5-17.5); Lymphocytes % (auto) 30.8 % (10.0-50.0); Mean Corpuscular Hemoglobin 31.3 pg (28.0-32.0); Mean Corpuscular Hgb Conc. 34.6 g/dL (32.0-36.0); Mean Corpuscular Volume 90.4 fL (80.0-100.0); Monocytes # (auto) 0.6 10 ^3/uL (0-1.3); Monocytes % (auto) 8.5 % (0.0-12.0); Neutrophils # (auto) 3.1 10 ^3/uL (1.6-8.6); Neutrophils % (auto) 47.3 % (37.0-80.0); Nucleated Red Blood Cells % 0.3 %; Platelet Count (auto) 191 10^3/uL (140-450); Red Blood Cells 5.14 10^6/uL (4.5-5.90); Red Cell Distribution Width 13.7 % (11.8-14.3); White Blood Cell 6.5 10^3/uL (4.4-10.8)
[2024-06-08 06:21] LABS: Alanine Aminotransferase 26 U/L (7-40); Albumin 3.9 g/dL (3.2-4.8); Alkaline Phosphatase 90 U/L (46-116); Anion Gap 8 (5-15); Aspartate Aminotransferase 34 U/L (13-40); BUN/Creatinine Ratio 18.3 (10.0-20.0); Bilirubin, Total 0.8 mg/dL (0.2-1.0); Blood Urea Nitrogen 17 mg/dL (9-23); Calcium 9.5 mg/dL (8.7-10.4); Carbon Dioxide 24 mmol/L (20-31); Chloride 107 mmol/L (98-107); Glucose 87 mg/dL (74-106); INR 1.08 (0.9-1.15); Magnesium 2.3 mg/dL (1.6-2.6); Partial Thromboplastin Time 58.2 SEC (24.5-34.5); Phosphorus 3.7 mg/dL (2.4-5.1); Prothrombin Time 11.4 sec (9.3-11.8); Sodium 139 mmol/L (136-145); Total Protein 6.4 g/dL (5.7-8.2)
--- NOTE | 2024-06-08 09:33 | DVHPN2 ---
Consult Progress Note Date Seen: Jun 08, 2024 Subjective Review of Systems: CVS:Normal, RESPIRATORY:Normal, NEURO:Normal Other Systems: Denies any cardiac symptoms Objective vital signs Vital Sign Date Time Temp Pulse Resp B/P (MAP) Pulse Ox O2 Delivery O2 Flow Rate FiO2 06/08/24 09:00 98.5 63 17 107/59 (75) 96 98.5 06/07/24 20:00 Room Air* 0 21 Total Intake and Output 06/07/24 06/07/24 06/08/24 15:00 23:00 07:00 Intake Total 600 ml 69 ml Output Total 300 ml 2550 ml Balance 300 ml -2481 ml medications Current Medications Medications Dose Ordered Sig/Harman Route Start Time Stop Time Status Last Admin Dose Admin Acetaminophen 650 mg Q6HP PRN PO 06/02/24 19:00 Aspirin 81 mg DAILY PO 06/04/24 10:00 06/07/24 10:07 81 MG Atorvastatin Calcium 80 mg HS PO 06/03/24 22:00 06/07/24 21:43 80 MG Prazosin HCl 1 mg Q12HR PO 06/03/24 22:00 06/07/24 21:43 1 MG Valsartan 80 mg DAILY PO 06/04/24 10:00 06/07/24 10:06 80 MG Spironolactone 25 mg DAILY PO 06/04/24 10:00 06/07/24 10:05 25 MG Metoprolol Succinate 25 mg DAILY PO 06/04/24 10:00 06/07/24 10:06 25 MG Empaglifozin 10 mg DAILY PO 06/04/24 10:00 06/07/24 10:07 10 MG Heparin Sodium/ Dextrose 250 ml @ 6 mls/hr Q24H IV 06/06/24 10:45 06/07/24 15:06 6 MLS/HR Examination: LUNGS:Normal, CVS:Normal, NEURO:Normal laboratory and microbiology Laboratory Tests 06/08/24 05:40 Test 06/08/24 05:40 Range/Units Serum Glucose 87 74-106 mg/dL Problem List/Assessment/Plan Problem List/Assessment/Plan Non ST elevation myocardial infarction 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 Govea) Transthoracic echocardiogram revealed EF 15% with global hypokinesia, RVSP 32 mmHg. S/p coronary angiogram 06/04/24 which revealed diffuse three-vessel disease involving the proximal LAD, large two diagonal branches, as well as a chronic total occlusion of the right coronary artery. Awaiting transfer to higher level of care for CABG evaluation. Continue on heparin drip and ASA. In the meantime, continue with guideline directed medical therapy for CHF as tolerated. Monitoring replace electrolytes. Cardiac stable at this time. Thank you for allowing us to care for this patient. Please call with any questions or concerns. This medical document was created using an electronic medical record system with voice recognition software and computerized dictation system. Although this document has been carefully reviewed, there might still be some phonetic and typographical errors. Occasional wrong-word or ``sound-alike substitutions may have occurred due to the inherent limitations of voice recognition software. These areas are purely typographical due to imperfections of the software programs and do not reflect any compromise in the patient's medical care. Please read the chart carefully and recognize, using context, where these substitutions have occurred. Plan discussed with: Patient, Other Dietary Evaluation Review Comments: 1. Continue current plan of care. Expected Outcomes/Goals: 1. Patient labs and appetite to improve 2. F/u in 3-5 days Date of Service: Jun 08, 2024 Billing Provider: SANDI GOVEA MD Cardiology Common Codes: [id number] [facility](JEIMY Blanco [facility] Jun 08, 2024 09:33
--- NOTE | 2024-06-08 21:08 | DVHPN2 ---
Assessment/Plan Assessment/Plan Progress note Subjective 59-year-old male admitted for urinary retention, patient reported having prior episodes before months apart. Does not follow with Urology. In ED Ward was placed and during urine. Seen patient during rounds, used educational interpreter [facility] with severe trivessel, plan for transfer HLOC. discussed with I CT surg, which defer to cardio team for acceptance, waiting for transfer center call. 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 hypokalemia severe tri vessel CAD place ward urology consult UA, culture IVF bolus trend lactate cardio consult appreciated asa, high intensity statin start jardiance, aldactone, metop succinate NRT GDMT strict I&O daily weight renal US with no hydronephrosis atransfer HLOC for CBAG Replete electrolytes Diet heart healthy DVT prophylaxis ambulatory Plan discussed with: Patient My Orders Orders - IRISH CRAIG MD Procedure Category Date Status Time Complete Blood Count LAB 06/09/24 Verified 04:00 Heparin Per Pharmacy EVA 06/08/24 In Process Protocol 09:41 Date of Service: Jun 08, 2024 Billing Provider: IRISH CRAIG MD Common Visit Codes: [id number] INP/OBS CARE(HIGH) IRISH CRAIG MD Jun 08, 2024 21:08
[2024-06-09] VITALS (8 sets, daily range): BP systolic 119–178; BP diastolic 68–84; PULSE 53–68; RESP 15–20; TEMP 88.3–98.4; O2SAT 96–99
[2024-06-09] MEDS: ACETAMINOPHEN 325 MG TAB PO PRN (00:25)
[2024-06-09 06:59] LABS: INR 1.08 (0.9-1.15); Partial Thromboplastin Time 55.2 SEC (24.5-34.5); Prothrombin Time 11.4 sec (9.3-11.8)
[2024-06-09 07:05] LABS: Basophils # (auto) 0.1 10 ^3/uL (0-0.2); Basophils % (auto) 1.1 % (0.0-2.0); Eosinophils # (auto) 0.8 10 ^3/uL (0-0.8); Eosinophils % (auto) 12.8 % (0.0-7.0); Hematocrit 44.3 % (41.0-53.0); Hemoglobin 15.1 g/dL (13.5-17.5); Lymphocytes # (auto) 2.4 10 ^3/uL (0.4-5.4); Lymphocytes % (auto) 38.5 % (10.0-50.0); Mean Corpuscular Hemoglobin 31.2 pg (28.0-32.0); Mean Corpuscular Hgb Conc. 34.1 g/dL (32.0-36.0); Mean Corpuscular Volume 91.6 fL (80.0-100.0); Monocytes # (auto) 0.5 10 ^3/uL (0-1.3); Monocytes % (auto) 8.4 % (0.0-12.0); Neutrophils # (auto) 2.4 10 ^3/uL (1.6-8.6); Neutrophils % (auto) 39.2 % (37.0-80.0); Nucleated Red Blood Cells % 0.1 %; Platelet Count (auto) 209 10^3/uL (140-450); Red Blood Cells 4.83 10^6/uL (4.5-5.90); Red Cell Distribution Width 13.7 % (11.8-14.3); White Blood Cell 6.2 10^3/uL (4.4-10.8)
[2024-06-09] MEDS: SACUBITRIL-VALSARTAN 24mg/26mg TAB PO SCH (09:34)
--- NOTE | 2024-06-09 11:26 | DVHPN2 ---
Consult Progress Note Date Seen: Jun 09, 2024 Subjective Review of Systems: CVS:Normal, RESPIRATORY:Normal, NEURO:Normal Objective vital signs Vital Sign Date Time Temp Pulse Resp B/P (MAP) Pulse Ox O2 Delivery O2 Flow Rate FiO2 06/09/24 09:35 58 124/70 06/09/24 09:00 98.0 20 98 98.0 06/09/24 02:00 Room Air* 0 21 Total Intake and Output 06/08/24 06/08/24 06/09/24 15:00 23:00 07:00 Intake Total 558 ml 240 ml Output Total 150 ml 400 ml Balance 408 ml -160 ml medications Current Medications Medications Dose Ordered Sig/Harman Route Start Time Stop Time Status Last Admin Dose Admin Acetaminophen 650 mg Q6HP PRN PO 06/02/24 19:00 06/09/24 00:25 650 MG Aspirin 81 mg DAILY PO 06/04/24 10:00 06/09/24 09:34 81 MG Atorvastatin Calcium 80 mg HS PO 06/03/24 22:00 06/08/24 21:52 80 MG Spironolactone 25 mg DAILY PO 06/04/24 10:00 06/09/24 09:34 25 MG Metoprolol Succinate 25 mg DAILY PO 06/04/24 10:00 06/08/24 09:43 25 MG Empaglifozin 10 mg DAILY PO 06/04/24 10:00 06/09/24 09:33 10 MG Heparin Sodium/ Dextrose 250 ml @ 6 mls/hr Q24H IV 06/06/24 10:45 06/09/24 05:11 6 MLS/HR Tamsulosin HCl 0.4 mg QPM PO 06/09/24 18:00 Sacubitril/ Valsartan 1 tab BID PO 06/09/24 10:00 06/09/24 09:34 1 TAB Examination: LUNGS:Normal, CVS:Normal, NEURO:Normal laboratory and microbiology Laboratory Tests 06/09/24 04:00 06/08/24 05:40 Test 06/08/24 05:40 Range/Units Serum Glucose 87 74-106 mg/dL Problem List/Assessment/Plan Problem List/Assessment/Plan Non-ST elevation myocardial infarction 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 Govea) The patient who presented with a chief complain of urinary retention underwent a transthoracic echocardiogram revealing an EF 15% with global hypokinesia, RVSP 32 mmHg for which he was scheduled for a coronary angiogram revealing diffuse three-vessel disease involving the proximal LAD, large two diagonal branches, as well as a chronic total occlusion of the right coronary artery. Initial recommended included transfer to higher level of care for CABG evaluation. Unfortunately, the transfer process has not be successful (see social sciences instructor notes). Given the patient's cardiac stability and lack of cardiac symptoms, we recommend outpatient follow-up with a primary [facility] within his medical network for CABG evaluation. In the meantime, continue with guideline directed medical therapy for CHF, dual-antiplatelet therapy, and lipid-lowering agent. 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 This was discussed with primary care team, Dr. Santiago. We will sign off at this time. Kindly call with any questions or concerns. Thank you for allowing us to care for this patient. This medical document was created using an electronic medical record system with voice recognition software and computerized dictation system. Although this document has been carefully reviewed, there might still be some phonetic and typographical errors. Occasional wrong-word or ``sound-alike substitutions may have occurred due to the inherent limitations of voice recognition software. These areas are purely typographical due to imperfections of the software programs and do not reflect any compromise in the patient's medical care. Please read the chart carefully and recognize, using context, where these substitutions have occurred. Plan discussed with: Patient, Other Dietary Evaluation Review Comments: 1. Continue current plan of care. Expected Outcomes/Goals: 1. Patient labs and appetite to improve 2. F/u in 3-5 days Date of Service: Jun 09, 2024 Billing Provider: SANDI GOVEA MD Cardiology Common Codes: [id number] [facility] JEIMY EPSTEIN [facility] Jun 09, 2024 11:26
[2024-06-09] MEDS: CLOPIDOGREL BISULFATE 75 MG TAB PO ONE (12:11)
[2024-06-09] MEDS ORDERED: SPIR25TA PO (14:20)
[2024-06-09] MEDS ORDERED: TAMS-35 PO (14:20)
[2024-06-09] MEDS ORDERED: CLOP75TA70 PO (14:20)
[2024-06-09] MEDS ORDERED: EMPA1TAB PO (14:20)
[2024-06-09] MEDS ORDERED: METO-6 PO (14:20)
[2024-06-09] MEDS ORDERED: ATOR20TA50 PO (14:20)
[2024-06-09] MEDS ORDERED: ASPI-325 PO (14:20)
[2024-06-09] MEDS ORDERED: SACU1TAB PO (14:20)
--- NOTE | 2024-06-09 14:33 | DVHDS2 ---
Discharge Summary Date of Admission Jun 02, 2024 at 18:53 Date of Discharge: Jun 04, 2024 Labs/Diagnostic Data: Laboratory Results Test 06/09/24 04:00 06/08/24 05:40 06/06/24 05:15 06/05/24 06:00 White Blood Count 6.2 10^3/uL (4.4-10.8) Red Blood Count 4.83 10^6/uL (4.5-5.90) Hemoglobin 15.1 g/dL (13.5-17.5) Hematocrit 44.3 % (41.0-53.0) Mean Corpuscular Volume 91.6 fL (80.0-100.0) Mean Corpuscular Hemoglobin 31.2 pg (28.0-32.0) Mean Corpuscular Hemoglobin Concent 34.1 g/dL (32.0-36.0) Red Cell Distribution Width 13.7 % (11.8-14.3) Platelet Count 209 10^3/uL (140-450) Mean Platelet Volume 8.4 fL (6.9-10.8) Neutrophils (%) (Auto) 39.2 % (37.0-80.0) Lymphocytes (%) (Auto) 38.5 % (10.0-50.0) Monocytes (%) (Auto) 8.4 % (0.0-12.0) Eosinophils (%) (Auto) 12.8 % (0.0-7.0) Basophils (%) (Auto) 1.1 % (0.0-2.0) Neutrophils # (Auto) 2.4 10 ^3/uL (1.6-8.6) Lymphocytes # (Auto) 2.4 10 ^3/uL (0.4-5.4) Monocytes # (Auto) 0.5 10 ^3/uL (0-1.3) Eosinophils # (Auto) 0.8 10 ^3/uL (0-0.8) Basophils # (Auto) 0.1 10 ^3/uL (0-0.2) Nucleated Red Blood Cells 0.1 % Prothrombin Time 11.4 sec (9.3-11.8) Prothrombin Time INR 1.08 (0.9-1.15) Activated Partial Thromboplast Time 55.2 SEC (24.5-34.5) Sodium Level 139 mmol/L (136-145) Potassium Level 4.0 mmol/L (3.5-5.1) Chloride Level 107 mmol/L (98-107) Carbon Dioxide Level 24 mmol/L (20-31) Anion Gap 8 (5-15) Blood Urea Nitrogen 17 mg/dL (9-23) Creatinine 0.93 mg/dL (0.700-1.30) Glomerular Filtration Rate Calc 96 mL/min (>90) BUN/Creatinine Ratio 18.3 (10.0-20.0) Serum Glucose 87 mg/dL (74-106) Calcium Level 9.5 mg/dL (8.7-10.4) Phosphorus Level 3.7 mg/dL (2.4-5.1) Magnesium Level 2.3 mg/dL (1.6-2.6) Total Bilirubin 0.8 mg/dL (0.2-1.0) Aspartate Amino Transferase (AST) 34 U/L (13-40) Alanine Aminotransferase (ALT) 26 U/L (7-40) Alkaline Phosphatase 90 U/L (46-116) Total Protein 6.4 g/dL (5.7-8.2) Albumin 3.9 g/dL (3.2-4.8) Differential Total Cells Counted 100.0 (100) Neutrophils % (Manual) 45 (37.0-80.0) Band Neutrophils % (Manual) 0 Lymphocytes % (Manual) 30 (10.0-50.0) Monocytes % (Manual) 6 (0-12) Eosinophils % (Manual) 19 (0-7) Basophils % (Manual) 0 (0.0-2.0) Metamyelocytes % (manual) 0 Myelocytes % (Manual) 0 Promyelocytes % (Manual) 0 Blast Cells % (Manual) 0 Reactive Lymphocytes 0 Platelet Estimate Adequate B-Type Natriuretic Peptide 22.70 pg/mL (0-100) Test 06/03/24 15:28 06/03/24 05:45 06/02/24 23:14 06/02/24 15:00 Lactic Acid Level 1.5 mmol/L (0.4-2.0) Hemoglobin A1c 5.7 % A1C (<5.7) Triglycerides Level 80 mg/dL (< 150) Cholesterol Level 130 mg/dL (< 200) LDL Cholesterol 72 mg/dL (< 100) HDL Cholesterol 44 mg/dL (40-59) Thyroid Stimulating Hormone (TSH) 0.73 uIU/mL (0.55-4.78) Troponin I High Sensitivity 640 ng/L (</=54) Urine Color Light-yellow (Yellow) Urine Clarity Clear (Clear) Urine pH 6.5 (5.0-9.0) Urine Specific [place] 1.010 (1.001-1.035) Urine Protein Negative (Negative) Urine Ketones Negative (Negative) Urine Blood Negative /uL (Negative) Urine Nitrite Negative (Negative) Urine Bilirubin Negative (Negative) Urine Urobilinogen Normal mg/dL (Negative) Urine Leukocyte Esterase Negative /uL (Negative) Urine RBC 3 /hpf (0 - 3) Urine WBC 1 /hpf (0 - 3) Urine Squamous Epithelial Cells None seen /hpf (<5) Urine Bacteria None seen /hpf (None Seen) Urine Glucose 1+ mg/dL (Normal) Other Laboratory Tests 06/09/24 04:00 06/08/24 05:40 Brief Hx & Hospital Course: 59 yo M admitted with urinary retention, found to have elevated roponin, echo showed severely reduced ejection fraction, LHC done with severe tri vessel disease, however completely asymptomatic. Multiple attempt to transfer patient for [facility] however due to his low ejection fraction has not been successful. With aircraft mechanic armament no [id number] i extensively explain to the patient his condition. further, with the assistance of dr Tan who are fluent in the patient's language to also explain to the patient. We will attempt to schedule a patient for PCP and to follow up with cardiology as outpatient, and urology. We did trial of void which are not successful and will replace and discharge with leg bag. I spent more than 60 minutes in doing multidisciplinary discussion regarding this patient and advanced care planning including outpatient follow up and patient insight with his current condition. Condition at Discharge: Good Final Diagnosis/Problems List acute on chronic urinary retention likely BPH chronic systolic heart failure heart failure with reduced ejection fraction severe triple vessel disease Discharge Disposition: Acute Care Facility Discharge Instruct/Medications Diet: Consistent carbohydrate, Cardiac 2g Na,low cholest Activity: No Restrictions, As Tolerated Follow Up/Referral: dr [facility] for primary care cardiology and advanced heart failure urology Medications: flomax entresto jardiance aspirin plavix lipitor metoprolol succinate aldactone 58 Discharge Statement: "Patient was advised to return to the ER or call 911 if any headaches, dizziness, shortness of breath, chest pain, abdominal pain, bleeding, fevers, or worsening of medical condition. Patient was counseled about treatment plan, medications, possible side effects, patientverbalized understanding. All questions were answered to the best of my ability. 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
--- NOTE | 2024-06-09 16:06 | PRN ---
Misceleneous Note Note Note spoke with brother Erich [phone] who told me will bring patient to his primary care tomorrow, patient still lives in [place] and will follow up there. medication sent bedside, patient will be discharged with leg bag. IRISH CRAIG MD Jun 09, 2024 16:06
[2024-06-09] MEDS ORDERED: TAMSULOSIN HYDROCHLORIDE 0.4 MG CAP PO SCH (18:00)
[2024-06-10] MEDS ORDERED: CLOPIDOGREL BISULFATE 75 MG TAB PO SCH (10:00)
== END 2024-06-09 17:20 | disposition short-term general hospital (02) | DRG 190 ==
LOC: ER 15:08 → TELE 18:53 → TELE-WESTW 19:03
PROVIDERS: ADMIT Nurse Practitioner; ATTEND Student in an Organized Health Care Education/Training Program
PROC: 4A023N7 Measurement of Cardiac Sampling and Pressure, Left Heart, Percutaneous Approach (ICD-10-PCS; principal; 2024-06-04)
PROC: B210YZZ Fluoroscopy of Single Coronary Artery using Other Contrast (ICD-10-PCS; 2024-06-04)
DX: I25.10 Atherosclerotic heart disease of native coronary artery without angina pectoris (principal); I21.A1 Myocardial infarction type 2; R64 Cachexia; E87.20 Acidosis, unspecified; I42.0 Dilated cardiomyopathy; I11.0 Hypertensive heart disease with heart failure; I16.0 Hypertensive urgency; N40.1 Benign prostatic hyperplasia with lower urinary tract symptoms; E87.6 Hypokalemia; E78.5 Hyperlipidemia, unspecified; R33.8 Other retention of urine; F17.200 Nicotine dependence, unspecified, uncomplicated; N39.0 Urinary tract infection, site not specified; I25.5 Ischemic cardiomyopathy; Z86.73 Personal history of transient ischemic attack (TIA), and cerebral infarction without residual deficits; Z79.899 Other long term (current) drug therapy; Z68.1 Body mass index [BMI] 19.9 or less, adult
CPT/HCPCS: 36415; 71045; 76775; 80048; 80053; 80061; 81001; 83036; 83605; 83735; 83880; 84100; 84443; 84484; 85007; 85025; 85027; 85610; 85730; 87081; 93005; 93306; 93458; 99152; G0378; J2250; Q9967